=== PATIENT | male | born 1945 | race Caucasian/White ===

== ENCOUNTER 2018-02-17 04:35 | Inpatient (IN) ==
[2018-02-17] MEDS ORDERED: SODIUM CHLORIDE 0.9% 1000ML 1,000 ML IV SCH ×2 (05:00→10:30)
--- NOTE | 2018-02-17 05:40 | Emergency Department Note ---
ED Visit Note I saw this patient in conjunction with Luis Alfredo Herrera PA-C. I agree with his decision making and treatment plan. .
[2018-02-17 05:53] LABS: Basophils # (auto) 0.02 K/uL (0-0.2); Basophils % (auto) 0.1 %; Eosinophils % (auto) 1.5 %; Hematocrit (blood only) 47.1 % (42-52); Hemoglobin 15.9 g/dL (14.0-18.0); Immature Granulocytes # (auto) 0.05 K/uL (0.00-0.02); Immature Granulocytes % (auto) 0.4 %; Lymphocytes # (auto) 2.54 K/uL (1.2-3.4); Lymphocytes % (auto) 18.8 %; Mean Corpuscular Hgb Conc 33.8 g/dL (32-36); Mean Corpuscular Volume 90.9 fL (80-100); Monocytes # (auto) 1.54 K/uL (0.11-0.59); Monocytes % (auto) 11.4 %; Neutrophils # (auto) 9.16 K/uL (1.4-6.5); Neutrophils % (auto) 67.8 %; Platelet Count 234 K/uL (130-400); RDW Coefficient of Variation 13.1 % (11.5-14.5); RDW Standard Deviation 43.1 fL (36.4-46.3); Red Blood Count 5.18 M/uL (4.7-6.1); White Blood Count 13.51 K/uL (4.8-10.8)
[2018-02-17 06:03] LABS: Albumin Level 3.5 gm/dl (3.4-5.0); Creatinine Clr Calc Pharmacy 80.2 ml/min; Est GFR (African American) 80.9; Est GFR (Non-African American) 69.8; Potassium 3.9 mmol/L (3.5-5.1)
[2018-02-17 06:06] LABS: Albumin Globulin Ratio 0.9 (0.9-2); Bilirubin,Total 0.7 mg/dl (0.2-1); C Reactive Protein 1.49 mg/dl (0-0.29); Globulin 3.9 gm/dl (2.5-4.0); Total Protein 7.4 gm/dl (6.4-8.2)
[2018-02-17] MEDS ORDERED: VANCOMYCIN HCL 1,000 MG/270 ML BAG IV STA (06:12)
[2018-02-17] MEDS ORDERED: VANCOMYCIN CONSULT ACTIVE PRN ×2 (06:12→10:21)
--- NOTE | 2018-02-17 06:34 | XRay Report ---
XR foot RT min 3V routine CLINICAL HISTORY: Right foot infection. COMPARISON: None FINDINGS: Tarsometatarsal joints are intact. There is no acute fracture. There is no radiographic ev idence for osteomyelitis within the right foot. A well-corticated ossicle along the lateral base of t he right fifth metatarsal is chronic. 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 There is mild adjacent soft tissue swelling. IMPRESSION: 1. No acute fracture or evidence for osteomyelitis within the right foot. 2. Right great toe soft tissue swelling. Electronically signed by: Hamzah Anthony M.D. 02/17/2018 6:33 AM
--- NOTE | 2018-02-17 06:52 | Emergency Department Note ---
History of Present Illness General Chief complaint: Foot Injury/Pain Stated complaint: PAIN IN RIGHT FOOT Time Seen by Provider: 02/17/18 04:46 History of Present Illness Maximum Pain Intensity: 8 This is a 72-year-old male presenting to the emergency department for evaluation of right foot pain. The patient states that last evening he began having pain in the right foot into his right ankle. He does not have recent injury or trauma to explain his symptoms. When he awoke early this morning he noticed a significant amount of redness in his foot and leg. On further inspection he did note that there was a small cut of a callus on his foot, and this seems to be where the redness is coming from. The patient has a history of diabetes and is insulin-dependent. He does not report a pre-existing history of neuropathy. The patient is able to ambulate on his foot, although it does cause him pain. He does not report fever or chills. He rates his discomfort in 09/27. Home Medications Home Medications Medication Instructions Recorded Confirmed Type aspirin 81 mg PO DAILY 02/17/18 02/17/18 History atorvastatin 10 mg PO DAILY 02/17/18 02/17/18 History canagliflozin [Invokana] 100 mg PO QAM 02/17/18 02/17/18 History glyburide 5 mg PO BID 02/17/18 02/17/18 History hydrochlorothiazide 25 mg PO DAILY 02/17/18 02/17/18 History insulin glargine [Lantus U-100 45 unit SUBCUT QAM 02/17/18 02/17/18 History Insulin] metformin 1,000 mg PO BID 02/17/18 02/17/18 History quinapril 40 mg PO DAILY 02/17/18 02/17/18 History Allergies Allergy/AdvReac Type Severity Reaction Status Date / Time clavulanic acid Allergy Severe Unknown Verified 02/17/18 06:00 Past Med/Surg History Medical History Dyslipidemia Hypertension Diabetes Social History Feels Safe at Home: Yes Smoking Status: Never smoker Review of Systems A total of 10 systems reviewed and were otherwise negative Physical Exam Vital Signs Vital Signs - 24 hr 02/17/18 04:38 02/17/18 06:23 02/17/18 07:07 Temperature 36.8 C Temperature Source Oral Sepsis Recent Fever Within 48 Hours No Sepsis New/Unexplained Change in Mental Status No Sepsis Action Taken by Nursing No Action Required Pulse Rate 102 H Pulse Rate [Right Finger] 91 H 91 H Respiratory Rate 20 20 18 Respiratory Effort / Characteristics Non-Labored Non-Labored Non-Labored Spontaneous Respiratory Depth Normal Normal Normal Blood Pressure 160/82 H Blood Pressure [Left Arm] 158/79 H 155/82 H Blood Pressure Mean 108 Blood Pressure Mean [Left Arm] 105 106 Blood Pressure Position Sitting Blood Pressure Position [Left Arm] Lying Pulse Oximetry 94 97 95 Oxygen Delivery Method Room Air Room Air Room Air VITALS: Vitals are noted on the nurse's note and reviewed by myself. Vital signs with mild tachycardia GENERAL: Well-developed, well-nourished, white male, who is in no acute distress and resting comfortably. Patient is cooperative with the examination. HEAD: Normocephalic atraumatic. EYES: Pupils equal round and reactive to light and accommodation. Conjunctivae without injection, sclerae without icterus. Extraocular movements intact. NECK: Supple without nuchal rigidity. No lymphadenopathy. No thyromegaly. Cervical spine is nontender. HEART: Regular rate and rhythm without murmurs gallops or rubs. LUNGS: Clear to auscultation bilaterally without wheezes, rales or rhonchi. No retractions or accessory muscle use. MUSCULOSKELETAL: There is a callus on the medial distal aspect of the right foot that has a crack/laceration through the mid aspect. This does appear to cause a mildly deep break in the skin that is not grossly necrotic, but does appear to penetrate deeply. There is notable surrounding erythema and edema from the ball of the right foot into the superior aspect of the foot with lymphangitic streaking extending to the proximal tibia. This area is warm and highly concerning for infection. No other lesions noted. NEURO: Patient was alert and oriented to person place and time. CN II through XII grossly intact. SKIN: The skin was without additional rashes, erythema, edema, or bruising. Capillary refill less than 2 seconds. Course Administered Medications Vancomycin HCl (Vancomycin Hcl) 1,000 mg in 270 mls @ 125 mls/hr IV NOW STA Stop: 02/17/18 08:21 Last Admin: 02/17/18 06:19 Dose: 125 mls/hr Discontinued Medications Sodium Chloride (Nss 1000ml) 1,000 mls @ 999 mls/hr IV .Q1H1M MIGUEL Stop: 02/17/18 06:00 Last Infusion: 02/17/18 06:47 Dose: 0 mls/hr Admin: 02/17/18 05:36 Dose: 999 mls/hr Medical Decision Making Differential Diagnosis Differential diagnosis includes: Etiologies such as cellulitis, abscess, osteomyelitis, MRSA infection, DVT, necrotizing fasciitis, dermatitis, drug eruption, as well as others were entertained Laboratory Data Result diagrams: 02/17/18 05:26 02/17/18 05:26 Lab Results 02/17/18 02/17/18 02/17/18 Range/Units 05:20 05:26 05:26 WBC 13.51 H (4.8-10.8) K/uL RBC 5.18 (4.7-6.1) M/uL Hgb 15.9 (14.0-18.0) g/dL Hct 47.1 (42-52) % MCV 90.9 (80-100) fL MCH 30.7 (25-34) pg MCHC 33.8 (32-36) g/dL RDW Std Deviation 43.1 (36.4-46.3) fL RDW Coeff of [place] 13.1 (11.5-14.5) % Plt Count 234 (130-400) K/uL MPV 11.0 H (7.4-10.4) fL Immature Gran % (Auto) 0.4 % Neut % (Auto) 67.8 % Lymph % (Auto) 18.8 % [place] % (Auto) 11.4 % Eos % (Auto) 1.5 % Baso % (Auto) 0.1 % Immature Gran # (Auto) 0.05 H (0.00-0.02) K/uL Neut # (Auto) 9.16 H (1.4-6.5) K/uL Lymph # (Auto) 2.54 (1.2-3.4) K/uL [place] # (Auto) 1.54 H (0.11-0.59) K/uL Eos # (Auto) 0.20 (0-0.5) K/uL Baso # (Auto) 0.02 (0-0.2) K/uL ESR 36 H (0-14) mm/hr Sodium (136-145) mmol/L Potassium (3.5-5.1) mmol/L Chloride (98-107) mmol/L Carbon Dioxide (21-32) mmol/L Anion Gap (3-11) BUN (7-18) mg/dl Creatinine (0.6-1.4) mg/dl Est Cr Clr Drug Dosing ml/min Est GFR ( Amer) Est GFR (Non-Af Amer) BUN/Creatinine Ratio (10-20) Glucose (70-99) mg/dl Lactate 1.3 (0.4-2.0) mmol/L Calcium (8.5-10.1) mg/dl Total Bilirubin (0.2-1) mg/dl AST (15-37) U/L ALT (12-78) U/L Alkaline Phosphatase (45-117) U/L C-Reactive Protein (0-0.29) mg/dl Total Protein (6.4-8.2) gm/dl Albumin (3.4-5.0) gm/dl Globulin (2.5-4.0) gm/dl Albumin/Globulin Ratio (0.9-2) 02/17/18 Range/Units 05:26 WBC (4.8-10.8) K/uL RBC (4.7-6.1) M/uL Hgb (14.0-18.0) g/dL Hct (42-52) % MCV (80-100) fL MCH (25-34) pg MCHC (32-36) g/dL RDW Std Deviation (36.4-46.3) fL RDW Coeff of [place] (11.5-14.5) % Plt Count (130-400) K/uL MPV (7.4-10.4) fL Immature Gran % (Auto) % Neut % (Auto) % Lymph % (Auto) % [place] % (Auto) % Eos % (Auto) % Baso % (Auto) % Immature Gran # (Auto) (0.00-0.02) K/uL Neut # (Auto) (1.4-6.5) K/uL Lymph # (Auto) (1.2-3.4) K/uL [place] # (Auto) (0.11-0.59) K/uL Eos # (Auto) (0-0.5) K/uL Baso # (Auto) (0-0.2) K/uL ESR (0-14) mm/hr Sodium 135 L (136-145) mmol/L Potassium 3.9 (3.5-5.1) mmol/L Chloride 100 (98-107) mmol/L Carbon Dioxide 27 (21-32) mmol/L Anion Gap 8.0 (3-11) BUN 19 H (7-18) mg/dl Creatinine 1.06 (0.6-1.4) mg/dl Est Cr Clr Drug Dosing 80.2 ml/min Est GFR ( Amer) 80.9 Est GFR (Non-Af Amer) 69.8 BUN/Creatinine Ratio 18.0 (10-20) Glucose 179 H (70-99) mg/dl Lactate (0.4-2.0) mmol/L Calcium 9.0 (8.5-10.1) mg/dl Total Bilirubin 0.7 (0.2-1) mg/dl AST 11 L (15-37) U/L ALT 27 (12-78) U/L Alkaline Phosphatase 68 (45-117) U/L C-Reactive Protein 1.49 H (0-0.29) mg/dl Total Protein 7.4 (6.4-8.2) gm/dl Albumin 3.5 (3.4-5.0) gm/dl Globulin 3.9 (2.5-4.0) gm/dl Albumin/Globulin Ratio 0.9 (0.9-2) Imaging Data Radiologist's Impression: XR foot RT min 3V routine CLINICAL HISTORY: Right foot infection. COMPARISON: None FINDINGS: Tarsometatarsal joints are intact. There is no acute fracture. There is no radiographic evidence for osteomyelitis within the right foot. A well- corticated ossicle along the lateral base of the right fifth metatarsal is chronic. There is mild osteoarthritis of the right first metatarsophalangeal joint. There is mild adjacent soft tissue swelling. IMPRESSION: 1. No acute fracture or evidence for osteomyelitis within the right foot. 2. Right great toe soft tissue swelling. MDM Narrative Physical exam and history were performed. Nursing notes, EMR, and Medication List were personally reviewed. Patient appears to have pain of his right foot that has evidently been evolving over the past few hours. On examination the patient has a concerning right foot cellulitis with noted lymphangitic streaking. He is mildly tachycardic and is diabetic. IV access was established and labs were obtained. X-rays were performed. The patient was hydrated with normal saline. Cultures and lactic acid were gathered. The wound itself does not have obvious drainage for culture. The patient's blood work is as above and was reviewed. He does have an elevated white blood cell count of 13.51 with associated shift. The patient sed rate and CRP are both elevated. Glucose is 179. Lactic acid is negative. X-ray was reviewed by myself and radiology as showing no acute process. The case was discussed with my attending physician, Dr. Tracy, who also independently evaluated the patient. We do not feel comfortable with discharging patient home at this point due to his quickly spreading infection and diabetic status. The patient was started on IV vancomycin here in the department. The case was discussed with the [facility] hospitalist who agreed to evaluate the patient here in the department. Please see their dictation for further patient course, plan, and disposition. The chart was completed utilizing [employer] Speech Voice Recognition Software. Grammatical errors, random word insertions, pronoun errors, and incomplete sentences are an occasional consequence of this system due to software limitations, ambient noise, and hardware issues. Any formal questions or concerns about the content, text, or information contained within the body of this dictation should be directly addressed to the provider for clarification. . Impression & Plan Cellulitis in diabetic foot Discharge Plan Visit Data Chief Complaint: Foot Injury/Pain Stated Complaint: PAIN IN RIGHT FOOT ED Provider: Zakiya Tracy ED Midlevel Provider: Luis Alfredo Herrera Discharge Problem: Cellulitis in diabetic foot Forms Stand Alone Forms: [facility] codesy Prescriptions Prescriptions: No Action insulin glargine [Lantus U-100 Insulin] 100 unit/mL solution 45 unit subcut QAM RF: 0 atorvastatin 10 mg tablet 10 mg PO DAILY RF: 0 glyburide 5 mg Tablet 5 mg PO BID RF: 0 aspirin 81 mg Tablet,Delayed Release (Dr/Ec) 81 mg PO DAILY RF: 0 quinapril 40 mg tablet 40 mg PO DAILY RF: 0 metformin 1,000 mg tablet 1,000 mg PO BID RF: 0 hydrochlorothiazide 25 mg tablet 25 mg PO DAILY RF: 0 canagliflozin [Invokana] 100 mg tablet 100 mg PO QAM RF: 0 Referrals Referrals: Fabian Escoto DO [Primary Care Provider] -
--- NOTE | 2018-02-17 08:48 | History & Physical Report ---
Date of Service February 17, 2018 Assessment & Plan (1) Cellulitis: Pt with right foot pain started yesterday with red streaking to right lower leg. denies injury/trauma. no fever/chills. In ER patient afebrile, P: 102 down to 91, R: 20, BP: 160/82, 94% on RA. WBC: 13. Normal lactate. ESR: 36, CRP: 1.49. Was given vancomycin R foot xray: No acute fracture or evidence for osteomyelitis within the right foot. Right great toe soft tissue swelling. -pending blood cultures -pending MRSA swab -zosyn, vancomycin -cbc, bmp in am (2) Diabetes mellitus, type II: HbA1c: 7.5 on 01/03/18 -Hold Invokana, glyburide, metformin while in hospital -Continue home Lantus 45 units daily -NovoLog sliding scale per protocol (3) Hypertension: BP 160/82. Patient did not have a.m. medicines today -Continue Accupril -Hold HCTZ for now -Monitor BP (4) Dyslipidemia: -Continue atorvastatin (5) ISABEL (obstructive sleep apnea): Intolerant to CPAP (6) GERD (gastroesophageal reflux disease): -Continue ranitidine DVT Prophylaxis -Lovenox SQ DNR/DNI as per discussion with pt Follows with Dr Fabian Escoto for routine care Pt was seen with Dr Jones. See addendum History of Present Illness Chief Complaint: R foot pain Primary Care Provider: Fabian Escoto, Pt is 72 y/o M with PMH melenoma, obesity, DM II, HTN, dyslipidemia, ISABEL presented to ER with c/o R foot pain started approx 21:00 yesterday. States increased pain this morning and noticed red streaking up right lower leg. Yesterday noticed callus to R plantar foot around 1st MTP base. Denies any discharge. Denies any known injury or trauma. Pt states 2 days ago felt a little achy. Hx dermatitis to extremities in which he uses triamcinalone prn. Denies hx MRSA, cellulitis, DVT. Denies fever/chills, diaphoresis, N/V/D/C, LEARY, dizziness, syncope, vision changes, neck pain, CP, SOB, orthopnea, palpitations , cough, sore throat, choking, otalgia, rhinorrhea, abdominal pain, paresthesias , weakness, extremity weakness, extremity edema, other rashes, urinary symptoms. Allergies Allergy/AdvReac Type Severity Reaction Status Date / Time clavulanic acid Allergy Severe Unknown Verified 02/17/18 06:00 Home Medications Home Medications Medication Instructions Recorded Confirmed Type aspirin 81 mg PO DAILY 02/17/18 02/17/18 History atorvastatin 10 mg PO PM 02/17/18 02/17/18 History canagliflozin [Invokana] 100 mg PO QAM 02/17/18 02/17/18 History glyburide 5 mg PO BID 02/17/18 02/17/18 History hydrochlorothiazide 25 mg PO DAILY 02/17/18 02/17/18 History insulin glargine [Lantus U-100 45 unit SUBCUT QAM 02/17/18 02/17/18 History Insulin] metformin 1,000 mg PO BID 02/17/18 02/17/18 History quinapril 40 mg PO DAILY 02/17/18 02/17/18 History ranitidine HCl 150 mg PO BID PRN 02/17/18 02/17/18 History Past Med/Surg History Medical History GERD (gastroesophageal reflux disease) (Chronic) Melanoma (Chronic) Obesity (Chronic) ISABEL (obstructive sleep apnea) (Chronic) Diabetes mellitus, type II (Chronic) Dyslipidemia (Chronic) Hypertension (Chronic) Surgical History History of arthroplasty of left knee (Resolved) Family History Other CAD (coronary artery disease) Stroke Social History Current Living Situation: Spouse Other Information That Helps Us Care for You: No Feels Safe at Home: Yes Safety Concerns: Feels Safe At This Time Smoking Status: Former smoker Do You Dip or Chew Tobacco: No Smoking End Date: 1972 Second Hand Exposure: No Tobacco Cessation Education Requested by Patient: No Hx Alcohol Use: Yes Alcohol type: beer Alcohol Intake Frequency: other Alcohol Intake Frequency Comment: 2 beers once a year Hx Substance Use: No Beliefs That Will Affect Care: None Preferred Language: Lao Communication Ability: Effective Visitor Services Representative Required: No Review of Systems All systems reviewed & are unremarkable except as noted in HPI & below Physical Exam 2 Vital Signs (Past 24 Hours): Last Vital Signs Temp 36.8 C 02/17/18 04:38 Pulse 91 H 02/17/18 07:07 Resp 18 02/17/18 07:07 BP 155/82 H 02/17/18 07:07 Pulse Ox 95 02/17/18 07:07 Physical Exam: General: no distress, obese Head: normocephalic, atraumatic Eyes: PERRL, EOM's intact, conjunctiva non-injected, anicteric ENT: normal inspection external ears, nose, mucous membranes moist Neck: supple, trachea midline Lungs: clear, no respiratory distress CV: RRR, no murmur, no pretibial edema Abd: normal BS, soft, non-tender Ext: no cyanosis, no calf tenderness, RLE: plantar surface of 1st metatarsal head with callus with central fissure with surrounding erythema and tenderness to palpation, right lower leg with red streaking Neuro: A&O x 3, no focal deficits noted, normal affect Skin: warm, dry, small dry patches noted to lower extremities Results & Data Laboratory Results Short CBC 02/17/18 Range/Units 05:26 WBC 13.51 H (4.8-10.8) K/uL Hgb 15.9 (14.0-18.0) g/dL Hct 47.1 (42-52) % Plt Count 234 (130-400) K/uL BMP 02/17/18 05:26 Sodium 135 L Potassium 3.9 Chloride 100 Carbon Dioxide 27 BUN 19 H Creatinine 1.06 Glucose 179 H Calcium 9.0 Liver Function 02/17/18 Range/Units 05:26 Total Bilirubin 0.7 (0.2-1) mg/dl AST 11 L (15-37) U/L ALT 27 (12-78) U/L Alkaline Phosphatase 68 (45-117) U/L Albumin 3.5 (3.4-5.0) gm/dl LACTATE 1.3 ESR: 36 (0-14) CRP: 1.49 (0-0.29) Diagnostic Findings XRAY RIGHT FOOT: IMPRESSION: 1. No acute fracture or evidence for osteomyelitis within the right foot. 2. Right great toe soft tissue swelling Supervising Physician Co-Signing Physician Notes Attending addendum: Patient was seen and examined in medical floor Is a 72-year-old obese male with diabetes and velocities involving the right ball of the great toe was admitted with spreading cellulitis involving the right leg. Has been feeling a lot better since admission and intravenous antibiotic Denies any pain, shortness of breath, fever and/or chills On examination Lying in bed comfortably Hemodynamically stable Chest- clear to auscultate bilaterally Heart-regular, no murmur appreciated Abdomen-benign Extremities-no edema Local exam of right foot-velocities involving the ball of the right great toe with skin break and black eschar Redness and tenderness are barely visible Labs and imaging studies noted Has spreading cellulitis involving right foot and the source of the callus Will get wound care consult Likely be discharged tomorrow on oral Augmentin Acute assessment and plan as outlined above by Rahel jones
[2018-02-17] MEDS ORDERED: CARBOHYDRATES FOR HYPOGLYCEMIA PO PRN (09:50)
[2018-02-17] MEDS ORDERED: POLYETHYLENE (MIRALAX) 17 GM PACK PO PRN (09:50)
[2018-02-17] MEDS ORDERED: GLUCOSE 40% GEL 15 GM TUBE PO PRN (09:50)
[2018-02-17] MEDS ORDERED: DEXTROSE 50% 50 ML SYRINGE IV PRN (09:50)
[2018-02-17] MEDS ORDERED: INSULIN GLARGINE SOLOSTAR 100 UNITS/ML 3 ML PEN SQ SCH (09:50)
[2018-02-17] MEDS ORDERED: ACETAMINOPHEN 325 MG TAB PO PRN (09:50)
[2018-02-17] MEDS ORDERED: GLUCAGON FOR INJ 1 MG VIAL SQ PRN (09:50)
[2018-02-17] MEDS ORDERED: GLUCOSE 10 TABS/TUBE PO PRN (09:50)
[2018-02-17] MEDS ORDERED: PIPERACILL/TAZOBAC CONSULT ACTIVE PRN (10:21)
[2018-02-17] MEDS ORDERED: PIPERACILLIN/TAZOBACTAM 4.5 GM in DEXTROSE 5% 100 ML IV ONE (10:30)
[2018-02-17] MEDS ORDERED: VANCOMYCIN HCL 2,000 MG in SODIUM CHLORIDE 0.9% 500 ML IV ONE (10:30)
--- NOTE | 2018-02-17 10:42 | Pharmacy Report ---
Pharmacy Abx Initial Consult - Date of Service February 17, 2018 - Pharmacy Dosing Scope Date of Consult: 02/17/18 Consultation requested by: Rahel Bustillo Pharmacy is consulted to initiate vancomycin/Zosyn IV dosing therapy, order appropriate labs and adjust drug dose/frequency. - Subjective The patient is a 72 year old M admitted on 02/17/18 08:43 with worsening foot infection. Patient has diabetes. - Objective Height: 5 ft 8 in Weight: 122.4 kg Vital Signs (Past 12hrs): Vital Signs Temp Pulse Pulse Resp BP BP BP 02/17/18 09:55 36.8 C 91 H 18 171/91 H 02/17/18 07:07 91 H 18 155/82 H 02/17/18 06:23 91 H 20 158/79 H 02/17/18 04:38 36.8 C 102 H 20 160/82 H Pulse Ox 02/17/18 09:55 96 02/17/18 07:07 95 02/17/18 06:23 97 02/17/18 04:38 94 Lab Results (24hrs): Laboratory Tests (24 Hours) 02/17/18 02/17/18 02/17/18 05:26 05:26 05:26 WBC 13.51 H Neut # (Auto) 9.16 H ESR 36 H Creatinine 1.06 Est Cr Clr Drug Dosing 80.2 C-Reactive Protein 1.49 H Micro Results: 02/17/18 05:26 Blood Culture - Pending Blood 02/17/18 05:10 Blood Culture - Pending Blood - Risk Factors for Resistance none. - Assessment & Plan Assessment 72 year old M with a PMH of diabetes who presents with worsening cellulitis. Plan vancomycin/Zosyn for treatment of diabetic foot infection Vancomycin IV * Estimated PK Parameters: Vd 0.6 L/kg, Sang 0.07 hr-1, t1/2 9.9 hr * Loading dose: 1000 mg (8 mg/kg) and then 2000 mg (16 mg/kg) * Maintenance dose: 1750 mg IV (14.3 mg/kg) every 12 hours * Goal trough level for cellulitis : ~15 mcg/mL * Trough ordered for 02/19/18 prior to 0800 dose * A less than traditional dose has been selected due to likelihood of drug accumulation in obese patient. Piperacillin/tazobactam * 4.5 g bolus administered over 30 minutes, then 4.5 g IV extended infusion every 8 hours for CrCl greater than 20 mL/min. * Aggressive dosing selected due to BMI 35 or more. Pharmacy will continue to follow and will adjust dose/frequency as necessary. Thank you.
[2018-02-17] MEDS: ENALAPRIL MALEATE 10 MG TAB PO SCH (11:20)
[2018-02-17] MEDS: ASPIRIN 81 MG ECTAB PO SCH (11:20)
[2018-02-17] MEDS: INSULIN GLARGINE SOLOSTAR 100 UNITS/ML 3 ML PEN SQ SCH (11:21)
[2018-02-17] MEDS: INSULIN ASPART 100 UNITS/ML 3 ML PEN SC SCH ×3 (11:24→21:50)
[2018-02-17] MEDS: ENOXAPARIN INJ 40 MG/0.4 ML SYR SQ SCH (12:49)
[2018-02-17] MEDS: PIPERACILLIN/TAZOBACTAM 4.5 GM in DEXTROSE 5% 100 ML IV SCH (15:16)
[2018-02-17] MEDS: VANCOMYCIN HCL 1,750 MG in SODIUM CHLORIDE 0.9% 500 ML IV SCH (20:30)
[2018-02-17] MEDS ORDERED: ATORVASTATIN 10 MG TAB PO SCH (21:00)
[2018-02-18] MEDS: PIPERACILLIN/TAZOBACTAM 4.5 GM in DEXTROSE 5% 100 ML IV SCH ×2 (00:09→08:40)
[2018-02-18 05:46] LABS: Basophils # (auto) 0.02 K/uL (0-0.2); Basophils % (auto) 0.2 %; Eosinophils # (auto) 0.22 K/uL (0-0.5); Eosinophils % (auto) 2.4 %; Hematocrit (blood only) 43.1 % (42-52); Hemoglobin 14.3 g/dL (14.0-18.0); Immature Granulocytes # (auto) 0.03 K/uL (0.00-0.02); Immature Granulocytes % (auto) 0.3 %; Lymphocytes # (auto) 2.43 K/uL (1.2-3.4); Lymphocytes % (auto) 26.5 %; Mean Corpuscular Hgb Conc 33.2 g/dL (32-36); Mean Corpuscular Volume 91.3 fL (80-100); Mean Platelet Volume 11.3 fL (7.4-10.4); Monocytes # (auto) 1.02 K/uL (0.11-0.59); Monocytes % (auto) 11.1 %; Neutrophils # (auto) 5.46 K/uL (1.4-6.5); Neutrophils % (auto) 59.5 %; Platelet Count 212 K/uL (130-400); RDW Coefficient of Variation 13.2 % (11.5-14.5); Red Blood Count 4.72 M/uL (4.7-6.1); White Blood Count 9.18 K/uL (4.8-10.8)
[2018-02-18 06:28] LABS: BUN Creatinine Ratio 17.3 (10-20); Calcium 8.4 mg/dl (8.5-10.1); Creatinine Clr Calc Pharmacy 86.7 ml/min; Est GFR (African American) 88.9; Est GFR (Non-African American) 76.7
[2018-02-18 08:01] VITALS: BP 154/76; PULSE 78; TEMP 99; O2SAT 94
[2018-02-18] MEDS: ENALAPRIL MALEATE 10 MG TAB PO SCH (08:33)
[2018-02-18] MEDS: ASPIRIN 81 MG ECTAB PO SCH (08:33)
[2018-02-18] MEDS: INSULIN GLARGINE SOLOSTAR 100 UNITS/ML 3 ML PEN SQ SCH (08:35)
[2018-02-18] MEDS: INSULIN ASPART 100 UNITS/ML 3 ML PEN SC SCH ×2 (08:36→12:41)
[2018-02-18] MEDS: VANCOMYCIN HCL 1,750 MG in SODIUM CHLORIDE 0.9% 500 ML IV SCH (08:40)
--- NOTE | 2018-02-18 11:17 | Hospitalist Progress Note ---
Date of Service February 18, 2018 Assessment & Plan (1) Cellulitis: Pt with right foot pain started yesterday with red streaking to right lower leg. denies injury/trauma. no fever/chills. In ER patient afebrile, P: 102 down to 91, R: 20, BP: 160/82, 94% on RA. WBC: 13. Normal lactate. ESR: 36, CRP: 1.49. Was given vancomycin R foot xray: No acute fracture or evidence for osteomyelitis within the right foot. Right great toe soft tissue swelling. Has been on vancomycin and Zosyn intravenously Blood culture still pending Clinically not better without any pain and/or redness Likely to be discharged this afternoon (2) Diabetes mellitus, type II: HbA1c: 7.5 on 01/03/18 -Hold Invokana, glyburide, metformin while in hospital -Continue home Lantus 45 units daily -NovoLog sliding scale per protocol -Blood sugar is controlled (3) Hypertension: BP 160/82. Patient did not have a.m. medicines today -Continue Accupril -Hold HCTZ for now -Blood pressure remains stable (4) Dyslipidemia: -Continue atorvastatin (5) ISABEL (obstructive sleep apnea): Intolerant to CPAP No acute issues (6) GERD (gastroesophageal reflux disease): -Continue ranitidine DVT Prophylaxis -Lovenox SQ Follows with Dr Fabian Escoto for routine care Clinically a lot better and wants to go home Likely be discharged on oral Augmentin Subjective Is a 72-year-old obese male with diabetes and velocities involving the right ball of the great toe was admitted with spreading cellulitis involving the right leg. 02/18/18 Patient was seen and examined in medical floor Denies to have any pain in the right foot Redness along the right lower leg is almost gone Patient has been ambulating Wants to go home this afternoon Physical Exam 2 Vital Signs (Past 24 Hours): Last Vital Signs Temp 37.2 C 02/18/18 08:01 Pulse 78 02/18/18 08:01 Resp 18 02/18/18 08:01 BP 154/76 H 02/18/18 08:01 Pulse Ox 94 02/18/18 08:01 Physical Exam: Sitting on a chair without symptoms Eyes: PERRL, conjunctivae normal, anicteric sclerae ENMT: external ear and nose normal, oropharynx normal Neck: trachea midline, no thyromegaly Respiratory: normal respiratory effort Auscultation: lungs clear to auscultation bilaterally Cardiovascular: Rate/Rhythm: regular rate and regular rhythm Heart Sounds: normal S1 and normal S2 Gastrointestinal (Abdomen): Inspection/Auscultation: abdomen normal to inspection and normal bowel sounds Neurologic: PERRL, EOMI, accommodation nl, no face palsy, no dysarthria Results & Data Laboratory Results Short CBC 02/18/18 Range/Units 05:24 WBC 9.18 (4.8-10.8) K/uL Hgb 14.3 (14.0-18.0) g/dL Hct 43.1 (42-52) % Plt Count 212 (130-400) K/uL BMP 02/18/18 05:24 Sodium 138 Potassium 4.0 Chloride 105 Carbon Dioxide 25 BUN 17 Creatinine 0.98 Glucose 190 H Calcium 8.4 L Medications Administered Current Inpatient Medications Acetaminophen (Tylenol) 650 mg PO Q4H PRN PRN Reason: pain/fever Stop: 03/19/18 09:49 Aspirin (Ecotrin) 81 mg PO DAILY MIGUEL Stop: 03/19/18 09:49 Last Admin: 02/18/18 08:33 Dose: 81 mg Atorvastatin Calcium (Lipitor) 10 mg PO PM MIGUEL Stop: 03/19/18 20:59 Last Admin: 02/17/18 20:30 Dose: 10 mg Dextrose (Dextrose 50%) 25 - 50 ml IV UD PRN; Protocol PRN Reason: Hypoglycemia Protocol Stop: 03/19/18 09:49 Enalapril Maleate (Vasotec) 40 mg PO DAILY MIGUEL Stop: 03/19/18 09:49 Last Admin: 02/18/18 08:33 Dose: 40 mg Enoxaparin Sodium (Lovenox) 40 mg SQ DAILY@1200 MIGUEL Stop: 03/19/18 11:59 Last Admin: 02/17/18 12:49 Dose: 40 mg Glucagon (Glucagen) 1 mg SQ UD PRN; Protocol PRN Reason: Hypoglycemia Protocol Stop: 03/19/18 09:49 Glucose (Dex4 Glucose) 4 - 8 tabs PO UD PRN; Protocol PRN Reason: Hypoglycemia Protocol Stop: 03/19/18 09:49 Glucose (Glucose 40%) 15 - 30 gm PO UD PRN; Protocol PRN Reason: Hypoglycemia Protocol Stop: 03/19/18 09:49 Piperacillin Sod/Tazobactam (Sod 4.5 gm/ Dextrose) 120 mls @ 30 mls/hr IV Q8H [facility]; Protocol Stop: 02/27/18 15:59 Last Admin: 02/18/18 08:40 Dose: 30 mls/hr Vancomycin HCl 1,750 mg/ (Sodium Chloride) 535 mls @ 200 mls/hr IV Q12H [facility] Stop: 02/27/18 19:59 Last Admin: 02/18/18 08:40 Dose: 200 mls/hr Insulin Aspart (Novolog Flexpen) 0 units SC ACHS [facility] Stop: 03/19/18 11:29 Last Admin: 02/18/18 08:36 Dose: 13 units Insulin Glargine (Lantus Solostar Pen) 45 units SQ QAM [facility] Stop: 03/19/18 10:14 Last Admin: 02/18/18 08:35 Dose: 45 units Miscellaneous (Carbohydrates For Hypoglycemia) 15 - 30 gm PO UD PRN PRN Reason: Hypoglycemia Treatment Stop: 03/19/18 09:49 Miscellaneous Information (Consult) 1 ea N/A UD PRN PRN Reason: Consult Stop: 03/19/18 10:20 Miscellaneous Information (Consult) 1 ea N/A UD PRN PRN Reason: Consult Stop: 03/19/18 10:20 Polyethylene Glycol (Miralax Powder Packet) 17 gm PO DAILY PRN PRN Reason: Constipation Stop: 03/19/18 09:49 Ranitidine HCl (Zantac) 150 mg PO BID PRN PRN Reason: Indigestion Stop: 03/19/18 09:49
[2018-02-18] MEDS: ENOXAPARIN INJ 40 MG/0.4 ML SYR SQ SCH (12:40)
[2018-02-18] MEDS ORDERED: cephALEXin 500 MG CAP PO STA (13:50)
--- NOTE | 2018-02-18 17:36 | Discharge Summary ---
Date of Service February 18, 2018 Admission HPI Per Admitting Provider Pt is 72 y/o M with PMH melenoma, obesity, DM II, HTN, dyslipidemia, ISABEL presented to ER with c/o R foot pain started approx 21:00 yesterday. States increased pain this morning and noticed red streaking up right lower leg. Yesterday noticed callus to R plantar foot around 1st MTP base. Denies any discharge. Denies any known injury or trauma. Pt states 2 days ago felt a little achy. Hx dermatitis to extremities in which he uses triamcinalone prn. Denies hx MRSA, cellulitis, DVT. Denies fever/chills, diaphoresis, N/V/D/C, LEARY, dizziness, syncope, vision changes, neck pain, CP, SOB, orthopnea, palpitations , cough, sore throat, choking, otalgia, rhinorrhea, abdominal pain, paresthesias , weakness, extremity weakness, extremity edema, other rashes, urinary symptoms. Admission Exam Per Admitting Provider Vital Signs (Past 24 Hours): Last Vital Signs Temp 36.8 C 02/17/18 04:38 Pulse 91 H 02/17/18 07:07 Resp 18 02/17/18 07:07 BP 155/82 H 02/17/18 07:07 Pulse Ox 95 02/17/18 07:07 Physical Exam: General: no distress, obese Head: normocephalic, atraumatic Eyes: PERRL, EOM's intact, conjunctiva non-injected, anicteric ENT: normal inspection external ears, nose, mucous membranes moist Neck: supple, trachea midline Lungs: clear, no respiratory distress CV: RRR, no murmur, no pretibial edema Abd: normal BS, soft, non-tender Ext: no cyanosis, no calf tenderness, RLE: plantar surface of 1st metatarsal head with callus with central fissure with surrounding erythema and tenderness to palpation, right lower leg with red streaking Neuro: A&O x 3, no focal deficits noted, normal affect Skin: warm, dry, small dry patches noted to lower extremities Principal Diagnosis Spreading cellulitis of right foot, insulin-dependent diabetes Discharge Exam Eyes PERRL, conjunctivae normal, anicteric sclerae ENMT external ear and nose normal, oropharynx normal Neck trachea midline, no thyromegaly Respiratory normal respiratory effort Auscultation: lungs clear to auscultation bilaterally Cardiovascular Rate/Rhythm: regular rate and regular rhythm Heart Sounds: normal S1 and normal S2 Gastrointestinal (Abdomen) Inspection/Auscultation: abdomen normal to inspection and normal bowel sounds Neurologic PERRL, EOMI, accommodation nl, no face palsy, no dysarthria Discharge Data Allergies Allergy/AdvReac Type Severity Reaction Status Date / Time clavulanic acid Allergy Severe Unknown Verified 02/17/18 06:00 Consultations 02/17/18 07:26 ED Decision to Admit Stat Hospital Course (1) Cellulitis: Pt with right foot pain started yesterday with red streaking to right lower leg. denies injury/trauma. no fever/chills. In ER patient afebrile, P: 102 down to 91, R: 20, BP: 160/82, 94% on RA. WBC: 13. Normal lactate. ESR: 36, CRP: 1.49. Was given vancomycin R foot xray: No acute fracture or evidence for osteomyelitis within the right foot. Right great toe soft tissue swelling. Has been on vancomycin and Zosyn intravenously Blood culture still pending Clinically not better without any pain and/or redness Likely to be discharged this afternoon (2) Diabetes mellitus, type II: HbA1c: 7.5 on 01/03/18 -Hold Invokana, glyburide, metformin while in hospital -Continue home Lantus 45 units daily -NovoLog sliding scale per protocol -Blood sugar is controlled (3) Hypertension: BP 160/82. Patient did not have a.m. medicines today -Continue Accupril -Hold HCTZ for now -Blood pressure remains stable (4) Dyslipidemia: -Continue atorvastatin (5) ISABEL (obstructive sleep apnea): Intolerant to CPAP No acute issues (6) GERD (gastroesophageal reflux disease): -Continue ranitidine DVT Prophylaxis -Lovenox SQ Follows with Dr Fabian Escoto for routine care Clinically a lot better and wants to go home Likely be discharged on oral Augmentin Total Time Total Time Spent Total Time Spent (In Minutes): 35 minutes Total Time Includes: Examination of the Patient, Discharge Planning and Medication Reconciliation Discharge Plan Discharge Items Patient Disposition: Home - Self-Care Reason For Visit: CELLULITIS, LYMPHANGITIS Discharge Diagnosis: Spreading cellulitis of right foot, insulin-dependent diabetes Condition: Fair Discharge Goals: Decrease discomfort, Improve disease control and Improve function Activity: Resume your previous activity Non-emergency contact: Primary Care Provider Call non-emergency contact if: you have any medication questions and your symptoms worsen Follow-up/Referrals: Fabian Escoto, [Primary Care Provider] - (Your doctor's office will call with an appointment) Diet: Carb Consistent or DM2 Addtl Provider Instructions: Try to keep your right foot infection area clean and dry Prescriptions: New cephalexin [Keflex] 500 mg capsule 500 mg PO TID Qty: 21 RF: 0 Continue insulin glargine 100 unit/mL solution 45 unit subcut QAM RF: 0 atorvastatin 10 mg tablet 10 mg PO PM RF: 0 glyburide 5 mg Tablet 5 mg PO BID RF: 0 aspirin 81 mg Tablet,Delayed Release (Dr/Ec) 81 mg PO DAILY RF: 0 quinapril 40 mg tablet 40 mg PO DAILY RF: 0 metformin 1,000 mg tablet 1,000 mg PO BID RF: 0 hydrochlorothiazide 25 mg tablet 25 mg PO DAILY RF: 0 canagliflozin 100 mg tablet 100 mg PO QAM RF: 0 ranitidine HCl 150 mg Capsule 150 mg PO BID PRN (Reason: Indigestion) RF: 0 Visit Report Forms: My [employer] Stand-Alone Forms: My [employer]/Other Patient Handouts: Diabetes Keep Feet Healthy, Diabetes Inspect Feet Discharge Orders: Discharge Order (Routine); Ordered 02/18/18 Ordered By: Ayana Robles Admission Data Admit Date/Time: 02/17/18 08:43 Attending Provider: Ayana Robles Admit Provider: Ayana Robles Primary Care Provider: Fabian Escoto Other Providers: Ayana Robles Service: Medical Other Interventions: Discharge Summary Assessment (RN) Last Done: 02/18/18 15:49 DC Date/Time DO NOT enter until pt leaves facility: 02/18/18 16:07
[2018-02-19] MEDS ORDERED: VANCOMYCIN TROUGH ONE (07:30)
== END 2018-02-18 16:07 | disposition home or self-care (01) | DRG 603 ==
LOC: ED 04:35 → 4E 08:43

== ENCOUNTER 2021-01-22 16:02 | Observation (INO) ==
[2021-01-22] MEDS ORDERED: ACETAMINOPHEN 500 MG TAB PO STA (16:15)
[2021-01-22] MEDS ORDERED: ONDANSETRON INJ 2 MG/ML 2 ML VIAL IV STA (16:15)
[2021-01-22] MEDS ORDERED: SODIUM CHLORIDE 0.9% 1000ML 1,000 ML IV SCH (16:15)
[2021-01-22 16:40] LABS: Basophils # (auto) 0.02 K/uL (0-0.2); Basophils % (auto) 0.2 %; Eosinophils # (auto) 0.36 K/uL (0-0.5); Eosinophils % (auto) 3.3 %; Hematocrit (blood only) 43.9 % (42-52); Hemoglobin 14.6 g/dL (14.0-18.0); Immature Granulocytes # (auto) 0.01 K/uL (0.00-0.02); Immature Granulocytes % (auto) 0.1 %; Lymphocytes # (auto) 3.01 K/uL (1.2-3.4); Lymphocytes % (auto) 27.4 %; Mean Corpuscular Hemoglobin 30.7 pg (25-34); Mean Corpuscular Hgb Conc 33.3 g/dL (32-36); Mean Corpuscular Volume 92.2 fL (80-100); Monocytes % (auto) 9.1 %; Neutrophils % (auto) 59.9 %; Platelet Count 262 K/uL (130-400); RDW Coefficient of Variation 13.6 % (11.5-14.5); RDW Standard Deviation 45.6 fL (36.4-46.3); Red Blood Count 4.76 M/uL (4.7-6.1)
--- NOTE | 2021-01-22 17:01 | XRay Report ---
XR chest 1V portable HISTORY: weakness COMPARISON: None. FINDINGS: No focal lung consolidations to suggest pneumonia. No evidence for pulmonary edema. The car diac silhouette is mildly enlarged. Small linear scarlike density within the left lower lung zone. Th ere is mild elevation of the right hemidiaphragm. There are low lung volumes. IMPRESSION: 1. Mild cardiomegaly. 2. No focal lung consolidations to suggest pneumonia. 3. Mild elevation of the right hemidiaphragm. ACT 112: Negative or not required by law. Electronically signed by: Miguel Lawrence M.D. 01/22/2021 5:00 PM
[2021-01-22 17:02] LABS: Alanine Aminotransferase 50 (12-78); Albumin Level 3.1 gm/dl (3.4-5.0); Aspartate Aminotransferase 27 U/L (15-37); BUN Creatinine Ratio 15.1 (10-20); Blood Urea Nitrogen 21 mg/dl (7-18); Calcium 8.9 mg/dl (8.5-10.1); Carbon Dioxide 26 mmol/L (21-32); Chloride 103 mmol/L (98-107); Creatinine Clr Calc Pharmacy 60.4 ml/min; Est GFR (African American) 57.6 ml/min; Est GFR (Non-African American) 49.7 ml/min; Glucose 171 mg/dl (70-99); Magnesium 1.7 mg/dl (1.8-2.4); Potassium 3.9 mmol/L (3.5-5.1); Sodium 140 mmol/L (136-145)
[2021-01-22 17:13] LABS: Albumin Globulin Ratio 0.8 (0.9-2); Alkaline Phosphatase 74 U/L (45-117); Bilirubin,Total 0.4 mg/dl (0.2-1); Globulin 3.9 gm/dl (2.5-4.0); Troponin I < 0.015 ng/ml (0-0.045)
--- NOTE | 2021-01-22 17:37 | Emergency Department Note ---
Impression & Plan Confusion, Hypertension, Acute otitis externa of left ear, Dizziness, Hypomagnesemia ED Provider Note Provider: Vasu Vidales MD DATE OF SERVICE: 01/22/2021 CHIEF COMPLAINT: Confusion, head pain, ear issues HISTORY OF PRESENT ILLNESS: Patient is a 75-year-old gentleman history of diabetes, hypertension, cellulitis, and ear infections presenting today from home. Patient states that around 1:00pm he began to feel unwell with a bit of a left headache near his ear and a bit of confusion. Describes good use and is being unable to cooperate TV remote is normal. States he felt bit unsteady and dizzy. No falls or trauma reported. No slurred speech with some fatigue reported. Reports some nausea but no abdominal pain or chest pain or trouble breathing. Patient was recently on a course of amoxicillin for a left ear infection and he states that was improving. Brought by EMS and noted to be hypertensive. No history of similar symptoms. Is on aspirin at home. Symptoms began after eating lunch. Patient is vaccinated with booster for Covid. REVIEW OF SYSTEMS: A total of 10 review of systems was obtained and negative except as stated above in the HPI. PAST MEDICAL HISTORY: As noted above MEDICATIONS: Reviewed home medication list include 81 mg ASA SOCIAL HISTORY: Very distant former smoker more than 50 years ago, lives at home PHYSICAL EXAM: GENERAL: alert and oriented in no acute distress on stretcher Head: normocephalic and atraumatic, no mastoid swelling or tenderness bilaterally. EYES: No injection, discharge or icterus. PERRL, EOMI. NECK: Trachea midline. Supple. ENT: Mucous membranes pink and moist. Right TM clear. Left TM is obscured due to some erythema and cerumen and slight white purulence. LUNGS: Airway patent. No retractions. Breath sounds clear with good air entry bilaterally. HEART: Regular rate and rhythm. No chest wall tenderness ABDOMEN: Soft and non-tender, without guarding or rebound. SKIN: Acyanotic, warm, dry, without rashes EXTREMITIES: Without swelling, tenderness or deformity NEUROLOGICAL: No focal deficits. No aphasia. No facial droop or slurred speech. Ambulatory. EK bpm sinus rhythm first-degree AV block. Right bundle branch block is noted as well. No acute ST segment elevation or depression. QTC 465. CONTINUOUS CARDIAC MONITORING: was ordered and showed a heart rate of 70s-90s bpm in sinus rhythm first-degree AV block Patient's laboratory studies and imaging reviewed. Differential includes Infection, dehydration, metabolic abnormality, hypo/hyperglycemia, electrolyte disturbance, anemia, hypoxia, cardiac sources, intracerebral event, toxicologic, neurologic, as well as other pathologies. IMPRESSION/MEDICAL DECISION MAKING: Patient with some acute onset of slight confusion dizziness and some headache. No trauma reported. No fevers reported but some nausea. Benign abdomen. Patient noted to be hypertensive. No slurred speech or facial droop or focal numbness or weakness in the extremities appreciated on exam. Some evidence of otitis externa on exam of the left ear but no mastoid tenderness or swelling concerning for mastoiditis. Patient does not appear meningitic. Lab work shows a slight leukocytosis of 11. Lactate is elevated at 4.6 without significant renal dysfunction. Mild hypomagnesemia and supplementation was ordered through the IV. No transaminitis noted. TSH within normal limits. Procalcitonin not elevated. Orders for Lyme and tickborne illness were sent. CT the head per radiology without acute intracranial bleed or abnormality noted. CT angiograms of the head and neck per radiology without occlusion or aneurysm some right ICA stenosis left internal artery carotid stenosis but patent vertebral arteries. Doubt he is symptomatic from this. Patient did receive some Tylenol, Zofran, and IV fluids here. Lactate elevation is a bit confounding as he does not appear septic and is hypertensive. Again received some fluids here. Question if his confusion could be more related to some infectious etiology versus occult CVA. No evidence of acute intracranial bleed on imaging and this is within short onset of symptoms so I doubt occult subarachnoid. Blood cultures have been obtained and given such given an empiric dose of Rocephin given the unclear constellation here. Given the concern for otitis externa Cipro dexamethasone otic drops were ordered. Discussed with the patient the findings and he is still having atypical symptoms for him. Cannot quite explain the transient confusion earlier. Patient's pulse ox also has been between 89 to 90% on room air with a no significant smoking history unsure why his oxygen level has been somewhat borderline. Influenza testing is still pending. Doubt this represents PE. Will cover empirically at this time with given this will discuss with the hospitalist for further care here at the hospital. DIAGNOSIS: Confusion, hypertension, hypomagnesemia, left otitis externa, dizziness DISPOSITION: Hospitalist will evaluate Patient was agreeable with this plan. Past Med/Surg History Medical History (Updated 01/22/21 @ 19:01 by Vasu Vidales M.D.) Diabetes mellitus, type II Dyslipidemia GERD (gastroesophageal reflux disease) Hypertension Melanoma Obesity ISABEL (obstructive sleep apnea) Surgical History (Updated 02/17/18 @ 09:15 by Rahel Bustillo PA-C) History of arthroplasty of left knee Family History (Updated 02/17/18 @ 10:33 by Rahel Bustillo PA-C) Other Coronary heart disease Stroke Social History (Updated 02/17/18 @ 09:16 by Rahel Bustillo PA-C) Smoking Status: Never smoker Second Hand Exposure: No; Hx Alcohol Use: Yes Alcohol type: beer Alcohol Intake Frequency Comment: 2 beers once a year Hx Substance Use: No Preferred Language: Greenlandic Communication Ability: Effective Content Development Specialist Required: No Beliefs That Will Affect Care: None marital status: Current Living Situation: Spouse Feels Safe at Home: Yes Assistive Devices: Glasses Allergies Allergies Allergy/AdvReac Type Severity Reaction Status Date / Time clavulanic acid Allergy Severe Unknown Verified 01/22/21 16:58 Home Meds Home Medications Medication Instructions Recorded Confirmed aspirin 81 mg tablet,delayed 81 mg PO DAILY 02/17/18 01/22/21 release atorvastatin 10 mg tablet 10 mg PO PM 02/17/18 01/22/21 glyburide 5 mg tablet 5 mg PO BID 02/17/18 01/22/21 hydrochlorothiazide 25 mg tablet 25 mg PO DAILY 02/17/18 01/22/21 insulin glargine 100 unit/mL 30 unit SUBCUT BID 02/17/18 01/22/21 subcutaneous solution metformin 1,000 mg tablet 1,000 mg PO BID 02/17/18 01/22/21 quinapril 40 mg tablet 40 mg PO DAILY 02/17/18 01/22/21 Saccharomyces boulardii 250 mg 250 mg PO BID 01/22/21 01/22/21 capsule (Florastor) dulaglutide 0.75 mg/0.5 mL 0.75 mg SUBCUT WK 01/22/21 01/22/21 subcutaneous pen injector (Trulicity) fluocinonide 0.05 % topical cream 1 applic TOPICAL BID PRN 01/22/21 01/22/21 loratadine 10 mg tablet (Claritin) 10 mg PO DAILY 01/22/21 01/22/21 mupirocin 2 % topical ointment 1 applic TOPICAL BID PRN 01/22/21 01/22/21 triamcinolone acetonide 0.1 % 1 applic TOPICAL DAILY PRN 01/22/21 01/22/21 topical cream triamcinolone acetonide 55 mcg 1 spray INTRANASAL DAILY PRN 01/22/21 01/22/21 nasal spray aerosol (Nasacort Allergy) vardenafil 20 mg tablet 20 mg PO DAILY PRN 01/22/21 01/22/21 Results & Data (ED) Vital Signs Vital Signs - 24 hr 01/22/21 15:48 01/22/21 16:05 01/22/21 16:16 Temperature 36.6 C Temperature Source Oral Pulse Rate 95 H Pulse Rate [Apical] 94 H Respiratory Rate 22 20 Respiratory Effort / Characteristics Non-Labored Spontaneous Respiratory Depth Normal Respiratory Pattern Regular Blood Pressure 183/104 H Blood Pressure [Right Arm] Blood Pressure Mean 130 Blood Pressure Mean [Right Arm] Pulse Oximetry 94 95 91 Oxygen Delivery Method Room Air Room Air Room Air Sepsis Recent Fever Within 48 Hours No Sepsis New/Unexplained Change in Mental Status Yes Sepsis Action Taken by Nursing No Action Required 01/22/21 17:48 01/22/21 18:48 Temperature Temperature Source Pulse Rate Pulse Rate [Apical] 94 H 84 Respiratory Rate 22 20 Respiratory Effort / Characteristics Respiratory Depth Respiratory Pattern Blood Pressure Blood Pressure [Right Arm] 154/76 H 176/77 H Blood Pressure Mean Blood Pressure Mean [Right Arm] 102 110 Pulse Oximetry 91 95 Oxygen Delivery Method Room Air Sepsis Recent Fever Within 48 Hours Sepsis New/Unexplained Change in Mental Status Sepsis Action Taken by Nursing Laboratory Data Result diagrams: 01/22/21 16:24 01/22/21 16:24 Lab Results 01/22/21 01/22/21 01/22/21 Range/Units 16:24 16:24 16:24 WBC (4.8-10.8) K/uL RBC (4.7-6.1) M/uL Hgb (14.0-18.0) g/dL Hct (42-52) % MCV (80-100) fL MCH (25-34) pg MCHC (32-36) g/dL RDW Std Deviation (36.4-46.3) fL RDW Coeff of [place] (11.5-14.5) % Plt Count (130-400) K/uL MPV (7.4-10.4) fL Immature Gran % (Auto) % Neut % (Auto) % Lymph % (Auto) % [place] % (Auto) % Eos % (Auto) % Baso % (Auto) % Neut # (Auto) (1.4-6.5) K/uL Lymph # (Auto) (1.2-3.4) K/uL [place] # (Auto) (0.11-0.59) K/uL Eos # (Auto) (0-0.5) K/uL Baso # (Auto) (0-0.2) K/uL Immature Gran # (Auto) (0.00-0.02) K/uL Sodium 140 (136-145) mmol/L Potassium 3.9 (3.5-5.1) mmol/L Chloride 103 (98-107) mmol/L Carbon Dioxide 26 (21-32) mmol/L Anion Gap 12.0 H (3-11) BUN 21 H (7-18) mg/dl Creatinine 1.38 (0.6-1.4) mg/dl Est Cr Clr Drug Dosing 60.4 ml/min Est GFR ( Amer) 57.6 ml/min Est GFR (Non-Af Amer) 49.7 ml/min BUN/Creatinine Ratio 15.1 (10-20) Glucose 171 H (70-99) mg/dl Lactate 4.6 H* (0.4-2.0) mmol/L Calcium 8.9 (8.5-10.1) mg/dl Magnesium 1.7 L (1.8-2.4) mg/dl Total Bilirubin 0.4 (0.2-1) mg/dl AST 27 (15-37) U/L ALT 50 (12-78) Alkaline Phosphatase 74 (45-117) U/L Troponin I < 0.015 (0-0.045) ng/ml Total Protein 7.0 (6.4-8.2) gm/dl Albumin 3.1 L (3.4-5.0) gm/dl Globulin 3.9 (2.5-4.0) gm/dl Albumin/Globulin Ratio 0.8 L (0.9-2) Procalcitonin < 0.05 (0-0.5) ng/ml TSH 3.020 (0.300-4.500) uIu/ml Anaplasma Smear Babesia Smear Lyme Disease IgG Ab (Negative) Lyme Disease IgM Ab (Negative) SARS-CoV-2, RNA, NAAT (NEGATIVE) 01/22/21 01/22/21 01/22/21 Range/Units 16:24 16:35 16:52 WBC 11.00 H (4.8-10.8) K/uL RBC 4.76 (4.7-6.1) M/uL Hgb 14.6 (14.0-18.0) g/dL Hct 43.9 (42-52) % MCV 92.2 (80-100) fL MCH 30.7 (25-34) pg MCHC 33.3 (32-36) g/dL RDW Std Deviation 45.6 (36.4-46.3) fL RDW Coeff of [place] 13.6 (11.5-14.5) % Plt Count 262 (130-400) K/uL MPV 11.0 H (7.4-10.4) fL Immature Gran % (Auto) 0.1 % Neut % (Auto) 59.9 % Lymph % (Auto) 27.4 % Bacon % (Auto) 9.1 % Eos % (Auto) 3.3 % Baso % (Auto) 0.2 % Neut # (Auto) 6.60 H (1.4-6.5) K/uL Lymph # (Auto) 3.01 (1.2-3.4) K/uL Bacon # (Auto) 1.00 H (0.11-0.59) K/uL Eos # (Auto) 0.36 (0-0.5) K/uL Baso # (Auto) 0.02 (0-0.2) K/uL Immature Gran # (Auto) 0.01 (0.00-0.02) K/uL Sodium (136-145) mmol/L Potassium (3.5-5.1) mmol/L Chloride (98-107) mmol/L Carbon Dioxide (21-32) mmol/L Anion Gap (3-11) BUN (7-18) mg/dl Creatinine (0.6-1.4) mg/dl Est Cr Clr Drug Dosing ml/min Est GFR ( Amer) ml/min Est GFR (Non-Af Amer) ml/min BUN/Creatinine Ratio (10-20) Glucose (70-99) mg/dl Lactate (0.4-2.0) mmol/L Calcium (8.5-10.1) mg/dl Magnesium (1.8-2.4) mg/dl Total Bilirubin (0.2-1) mg/dl AST (15-37) U/L ALT (12-78) Alkaline Phosphatase (45-117) U/L Troponin I (0-0.045) ng/ml Total Protein (6.4-8.2) gm/dl Albumin (3.4-5.0) gm/dl Globulin (2.5-4.0) gm/dl Albumin/Globulin Ratio (0.9-2) Procalcitonin (0-0.5) ng/ml TSH (0.300-4.500) uIu/ml Anaplasma Smear See Comment Babesia Smear See Comment Lyme Disease IgG Ab Negative (Negative) Lyme Disease IgM Ab Negative (Negative) SARS-CoV-2, RNA, NAAT NEGATIVE (NEGATIVE) Administered Medications Ciprofloxacin/Dexamethasone (Cipro 0.3%/Dexamethasone 0.1% Otic Susp 7.5ml) 2 drops OT QID [facility] Stop: 02/21/21 20:59 Last Admin: 01/22/21 19:05 Dose: 2 drops Documented by: [id number] Discontinued Medications Acetaminophen (Acetaminophen 500 Mg Tab) 1,000 mg PO NOW STA Stop: 01/22/21 16:16 Last Admin: 01/22/21 16:48 Dose: 1,000 mg Documented by: [id number] Sodium Chloride (Nss 1000ml) 1,000 mls @ 999 mls/hr IV .Q1H1M [facility] Stop: 01/22/21 17:15 Last Admin: 01/22/21 16:48 Dose: 999 mls/hr Documented by: [id number] Magnesium Sulfate/Dextrose (Magnesium Sulfate / D5w) 1 gm in 100 mls @ 200 mls/hr IV Q30M [facility] Stop: 01/22/21 18:14 Last Admin: 01/22/21 19:08 Dose: 200 mls/hr Documented by: [id number] Ioversol (Optiray 320 125ml) 120 ml IV ONCE ONE Stop: 01/22/21 18:29 Last Admin: 01/22/21 18:28 Dose: 1 ml Documented by: [id number] Ondansetron HCl (Ondansetron Inj 2 Mg/Ml 2 Ml Vial) 4 mg IV NOW STA Stop: 01/22/21 16:16 Last Admin: 01/22/21 16:48 Dose: 4 mg Documented by: [id number] Imaging Data Radiologist's Impression: Head CT 01/22/21 16:15 CT OF THE HEAD WITHOUT CONTRAST CLINICAL HISTORY: weakness, left headache, dizzy, nausea, HTN COMPARISON STUDY: No previous studies for comparison. CT DOSE: 823.12 mGy.cm TECHNIQUE: Helical axial images of the head were obtained without IV contrast. Automated exposure control was utilized for the study. A dose lowering [place] was utilized adhering to the principles of ALARA. FINDINGS: No acute intracranial hemorrhage, midline shift or mass effect is present. The ventricular system is unremarkable. The basal cisterns are patent. No extra-axial collections are present. There are no findings to suggest acute dural sinus thrombosis or acute territorial infarct. No significant calvarial abnormalities are present. Visualized portions of the sinuses and mastoid air cells are clear. Metallic density within the oral cavity is noted. IMPRESSION: No acute intracranial findings. ACT 112: Negative or not required by law. Electronically signed by: Hamzah Anthony M.D. 01/22/2021 5:44 PM Chest X-Ray 01/22/21 16:16 XR chest 1V portable HISTORY: weakness COMPARISON: None. FINDINGS: No focal lung consolidations to suggest pneumonia. No evidence for pulmonary edema. The cardiac silhouette is mildly enlarged. Small linear scarlike density within the left lower lung zone. There is mild elevation of the right hemidiaphragm. There are low lung volumes. IMPRESSION: 1. Mild cardiomegaly. 2. No focal lung consolidations to suggest pneumonia. 3. Mild elevation of the right hemidiaphragm. ACT 112: Negative or not required by law. Electronically signed by: Miguel Lawrence M.D. 01/22/2021 5:00 PM Head CTA 01/22/21 17:36 HEAD & NECK CTA HISTORY: headache confusion TECHNIQUE: Multiaxial CT images of the head were performed following the intravenous administration of contrast to evaluate the major cerebral vessels. Multiaxial CT images of the neck were also performed following the intravenous administration of contrast to evaluate the major cervical vessels. Maximum intensity projection images were also obtained. A dose lowering technique was utilized adhering to the principles of ALARA. COMPARISON: Head CT 01/22/2021. FINDINGS: There is no mass, hematoma, midline shift, or acute infarct. Visualized intracranial left internal carotid artery, distal vertebral arteries, and basilar artery are widely patent. There is no significant stenosis, occlusion, or aneurysm seen within the bilateral ACAs, MCAs, or obstetrician and gynaecologist. Mild calcified plaque within the bilateral carotid siphons and distal vertebral arteries. Approximately 75% focal stenosis within the supraclinoid right ICA. Remaining portions of the right internal carotid artery are patent. The major dural venous sinuses are patent. The aortic arch and proximal great vessels are widely patent. No occlusion or dissection within the bilateral common carotid, internal carotid, or vertebral arteries. No significant stenosis within the vertebral arteries. Moderate calcified plaque within the bilateral carotid bifurcations. This results in approximately 30% focal stenosis at the takeoff of the left internal carotid artery. No significant stenosis within the right internal carotid artery. IMPRESSION: 1. No occlusion or aneurysm within the [place]. 2. Approximately 75% focal stenosis within the supraclinoid right ICA. 3. Approximately 30% focal stenosis at the takeoff of the left internal carotid artery. 4. The bilateral vertebral arteries are patent. ACT 112: Negative or not required by law. Electronically signed by: Miguel Lawrence M.D. 01/22/2021 6:44 PM Neck CTA 01/22/21 17:36 HEAD & NECK CTA HISTORY: headache confusion TECHNIQUE: Multiaxial CT images of the head were performed following the intravenous administration of contrast to evaluate the major cerebral vessels. Multiaxial CT images of the neck were also performed following the intravenous administration of contrast to evaluate the major cervical vessels. Maximum intensity projection images were also obtained. A dose lowering technique was utilized adhering to the principles of ALARA. COMPARISON: Head CT 01/22/2021. FINDINGS: There is no mass, hematoma, midline shift, or acute infarct. Visualized intracranial left internal carotid artery, distal vertebral arteries, and basilar artery are widely patent. There is no significant stenosis, occlusion, or aneurysm seen within the bilateral ACAs, MCAs, or obstetrician and gynaecologist. Mild calcified plaque within the bilateral carotid siphons and distal vertebral arteries. Approximately 75% focal stenosis within the supraclinoid right ICA. Remaining portions of the right internal carotid artery are patent. The major dural venous sinuses are patent. The aortic arch and proximal great vessels are widely patent. No occlusion or dissection within the bilateral common carotid, internal carotid, or vertebral arteries. No significant stenosis within the vertebral arteries. Moderate calcified plaque within the bilateral carotid bifurcations. This results in approximately 30% focal stenosis at the takeoff of the left internal carotid artery. No significant stenosis within the right internal carotid artery. IMPRESSION: 1. No occlusion or aneurysm within the [place]. 2. Approximately 75% focal stenosis within the supraclinoid right ICA. 3. Approximately 30% focal stenosis at the takeoff of the left internal carotid artery. 4. The bilateral vertebral arteries are patent. ACT 112: Negative or not required by law. Electronically signed by: Miguel Lawrence M.D. 01/22/2021 6:44 PM Discharge Plan Visit Data Chief Complaint: Confusion ED Provider: Vasu Vidales Discharge Problem: Confusion, Hypertension, Acute otitis externa of left ear, Dizziness, Hypomagnesemia Patient Disposition: Being Evaluated by Hospitalist Forms Stand Alone Forms: My [facility] Prescriptions Prescriptions: No Action insulin glargine 100 unit/mL solution 30 unit subcut BID RF: 0 atorvastatin 10 mg tablet 10 mg PO PM RF: 0 glyburide 5 mg Tablet 5 mg PO BID RF: 0 aspirin 81 mg Tablet,Delayed Release (Dr/Ec) 81 mg PO DAILY RF: 0 quinapril 40 mg tablet 40 mg PO DAILY RF: 0 metformin 1,000 mg tablet 1,000 mg PO BID RF: 0 hydrochlorothiazide 25 mg tablet 25 mg PO DAILY RF: 0 triamcinolone acetonide [Aristocort] 0.1 % Cream 1 applic TOPICAL DAILY PRN (Reason: Skin Irritation) RF: 0 triamcinolone acetonide [Nasacort Allergy] 55 mcg Aerosol,[place] 1 spray INTRANASAL DAILY PRN (Reason: NEEDED) RF: 0 mupirocin [Bactroban] 2 % Ointment 1 applic TOPICAL BID PRN (Reason: SORES ON FOOT) RF: 0 fluocinonide 0.05 % Cream 1 applic TOPICAL BID PRN (Reason: ITCHINESS/SKIN IRRITATION) RF: 0 loratadine [Claritin] 10 mg Tablet 10 mg PO DAILY RF: 0 vardenafil 20 mg Tablet 20 mg PO DAILY PRN (Reason: IMPOTENCE OF ORGANIC ORIGIN) RF: 0 Saccharomyces boulardii [Florastor] 250 mg Capsule 250 mg PO BID RF: 0 Trulicity 0.75 mg/0.5 mL Pen Injector 0.75 mg SUBCUT WK RF: 0 Referrals Referrals: Fabian Escoto DO [Primary Care Provider] - Discharge Problem: Hypertension Qualifiers: Hypertension type: unspecified Qualified Code(s): I10 - Essential (primary) hypertension Acute otitis externa of left ear Qualifiers: Otitis externa type: unspecified type Qualified Code(s): H60.502 - Unspecified acute noninfective otitis externa, left ear
--- NOTE | 2021-01-22 17:45 | CT Scan Report ---
CT OF THE HEAD WITHOUT CONTRAST CLINICAL HISTORY: weakness, left headache, dizzy, nausea, HTN COMPARISON STUDY: No previous studies for comparison. CT DOSE: 823.12 mGy.cm TECHNIQUE: Helical axial images of the head were obtained without IV contrast. Automated exposure con trol was utilized for the study. A dose lowering technique was utilized adhering to the principles o f ALARA. FINDINGS: No acute intracranial hemorrhage, midline shift or mass effect is present. The ventricular system is unremarkable. The basal cisterns are patent. No extra-axial collections are present. There are no findings to suggest acute dural sinus thrombosis or acute territorial infarct. No significant calvarial abnormalities are present. Visualized portions of the sinuses and mastoid air cells are sp[place] ar. Metallic density within the oral cavity is noted. IMPRESSION: No acute intracranial findings. ACT 112: Negative or not required by law. Electronically signed by: Hamzah Anthony M.D. 01/22/2021 5:44 PM
[2021-01-22] MEDS ORDERED: OPTIRAY 320 125ml IV ONE (18:28)
[2021-01-22] MEDS ORDERED: cefTRIAXone SODIUM 2,000 MG/70 ML BAG IV STA (18:44)
--- NOTE | 2021-01-22 18:45 | CT Scan Report ---
HEAD & NECK CTA HISTORY: headache confusion TECHNIQUE: Multiaxial CT images of the head were performed following the intravenous administration o f contrast to evaluate the major cerebral vessels. Multiaxial CT images of the neck were also perform ed following the intravenous administration of contrast to evaluate the major cervical vessels. Maxim um intensity projection images were also obtained. A dose lowering technique was utilized adhering to the principles of ALARA. COMPARISON: Head CT 01/22/2021. FINDINGS: There is no mass, hematoma, midline shift, or acute infarct. Visualized intracranial left internal ca rotid artery, distal vertebral arteries, and basilar artery are widely patent. There is no significan t stenosis, occlusion, or aneurysm seen within the bilateral ACAs, MCAs, or nuclear power reactor operator. Mild calcified plaq ue within the bilateral carotid siphons and distal vertebral arteries. Approximately 75% focal stenos is within the supraclinoid right ICA. Remaining portions of the right internal carotid artery are pat ent. The major dural venous sinuses are patent. The aortic arch and proximal great vessels are widely patent. No occlusion or dissection within the bilateral common carotid, internal carotid, or vertebral arteries. No significant stenosis within th e vertebral arteries. Moderate calcified plaque within the bilateral carotid bifurcations. This resul ts in approximately 30% focal stenosis at the takeoff of the left internal carotid artery. No signifi cant stenosis within the right internal carotid artery. IMPRESSION: 1. No occlusion or aneurysm within the [place]. 2. Approximately 75% focal stenosis within the supraclinoid right ICA. 3. Approximately 30% focal stenosis at the takeoff of the left internal carotid artery. 4. The bilateral vertebral arteries are patent. ACT 112: Negative or not required by law. Electronically signed by: Miguel Lawrence M.D. 01/22/2021 6:44 PM
--- NOTE | 2021-01-22 18:45 | CT Scan Report ---
HEAD & NECK CTA HISTORY: headache confusion TECHNIQUE: Multiaxial CT images of the head were performed following the intravenous administration o f contrast to evaluate the major cerebral vessels. Multiaxial CT images of the neck were also perform ed following the intravenous administration of contrast to evaluate the major cervical vessels. Maxim um intensity projection images were also obtained. A dose lowering technique was utilized adhering to the principles of ALARA. COMPARISON: Head CT 01/22/2021. FINDINGS: There is no mass, hematoma, midline shift, or acute infarct. Visualized intracranial left internal ca rotid artery, distal vertebral arteries, and basilar artery are widely patent. There is no significan t stenosis, occlusion, or aneurysm seen within the bilateral ACAs, MCAs, or net software developer. Mild calcified plaq ue within the bilateral carotid siphons and distal vertebral arteries. Approximately 75% focal stenos is within the supraclinoid right ICA. Remaining portions of the right internal carotid artery are pat ent. The major dural venous sinuses are patent. The aortic arch and proximal great vessels are widely patent. No occlusion or dissection within the bilateral common carotid, internal carotid, or vertebral arteries. No significant stenosis within th e vertebral arteries. Moderate calcified plaque within the bilateral carotid bifurcations. This resul ts in approximately 30% focal stenosis at the takeoff of the left internal carotid artery. No signifi cant stenosis within the right internal carotid artery. IMPRESSION: 1. No occlusion or aneurysm within the [place]. 2. Approximately 75% focal stenosis within the supraclinoid right ICA. 3. Approximately 30% focal stenosis at the takeoff of the left internal carotid artery. 4. The bilateral vertebral arteries are patent. ACT 112: Negative or not required by law. Electronically signed by: Miguel Lawrence M.D. 01/22/2021 6:44 PM
[2021-01-22 19:05] LABS: Lyme Ab IgG w/WB Rflx Negative (Negative); Lyme Ab IgM w/WB Rflx Negative (Negative)
[2021-01-22] MEDS: CIPRO 0.3%/DEXAMETHASONE 0.1% OTIC SUSP 7.5ML OT SCH (19:05)
[2021-01-22] MEDS: MAGNESIUM SULFATE / D5W 1 GM/100 ML BAG IV SCH ×2 (19:08→20:08)
[2021-01-22 19:17] LABS: Influenza A virus by PCR Negative (Negative); Influenza B virus by PCR Negative (Negative)
[2021-01-22] MEDS ORDERED: LACTATED RINGER'S 1,000 ML IV ONE (19:40)
[2021-01-22 20:47] LABS: Partial Thromboplastin Ratio 0.8; Partial Thromboplastin Time 21.8 Seconds (21.0-31.0)
[2021-01-22] MEDS ORDERED: ALBUT/IPRATROP 3MG/0.5MG NEB 3 ML VIAL NEB STA (20:49)
[2021-01-22] MEDS ORDERED: guaiFENesin SUGAR FREE 100 MG/5 ML UDC PO STA (20:50)
--- NOTE | 2021-01-22 20:54 | History & Physical Report ---
Date of Service January 22, 2021 Assessment & Plan (1) Confusion: Plan: Transient episode Multifactorial : Uncontrolled hypertension Mild clinical dehydration Rule out intracranial complication from recurrent left ear infections Rule out UTI hyperlipidemia, on statin Rx DM2 insulin requiring, suboptimal control as of recent hemoglobin A1c of 7.27 December 2020 past tobacco abuse OBS Medical telemetry Titrate home BP meds Gentle IV hydration, hold home diuretic until patient euvolemic MRI brain Re: Vertigo, transient apraxia, recurrent ear infections Topical antibiotic/steroid Rx for otitis externa left check UA Further management pending work-up results. Basal insulin, ISS BG goal 1 10-1 40, carb count coverage DVT prophylaxis. Lovenox subcu Full code Text document was generated using [employer] voice recognition software. It may contain grammatical or spelling errors. Kindly contact undersigned for clarification of any documentation item in question. History of Present Illness Chief Complaint: Did not feel well, confusion, left ear pain, dizziness Primary Care Provider: Fabian Escoto DO History obtained from patient and records. Medical history significant for hypertension, hyperlipidemia, DM2 insulin requiring, ISABEL (CPAP intolerance as per records), past tobacco abuse. Last confinement February 2018 for right foot cellulitis. Prescribed amoxicillin course last month by PCP for otitis media as per records. Symptoms responded to treatment. Patient started feeling unwell this afternoon, achy left-sided headache associated with left ear pain without discharge. Vertigo symptoms as per patient. Patient felt confused. Transient trouble operating the TV remote. Patient denies chest pain, S OB. Usual dry cough symptoms as per patient. No fever, no chills. Patient brought to the ER for evaluation. Initial SBP at the ER 180s. IV Ceftriaxone given at the ER. Patient feels much better. Medical History as above Surgical History : Knee surgery, testicular cyst surgery, sinus surgery, finger tendon sheath surgery Family History : Heart disease, stroke Personal/Social history : Past tobacco abuse, occasional EtOH intake Allergies Allergy/AdvReac Type Severity Reaction Status Date / Time clavulanic acid Allergy Severe Unknown Verified 01/22/21 16:58 Home Medications Medication Instructions Recorded Confirmed Type glyburide 5 mg tablet 5 mg PO BID 02/17/18 01/22/21 History hydrochlorothiazide 25 mg tablet 25 mg PO DAILY 02/17/18 01/22/21 History insulin glargine 100 unit/mL 30 unit SUBCUT BID 02/17/18 01/22/21 History subcutaneous solution metformin 1,000 mg tablet 1,000 mg PO BID 02/17/18 01/22/21 History quinapril 40 mg tablet 40 mg PO DAILY 02/17/18 01/22/21 History Saccharomyces boulardii 250 mg 250 mg PO BID 01/22/21 01/22/21 History capsule (Florastor) dulaglutide 0.75 mg/0.5 mL 0.75 mg SUBCUT WK 01/22/21 01/22/21 History subcutaneous pen injector (Trulicity) fluocinonide 0.05 % topical cream 1 applic TOPICAL BID PRN 01/22/21 01/22/21 History loratadine 10 mg tablet (Claritin) 10 mg PO DAILY 01/22/21 01/22/21 History mupirocin 2 % topical ointment 1 applic TOPICAL BID PRN 01/22/21 01/22/21 History triamcinolone acetonide 0.1 % 1 applic TOPICAL DAILY PRN 01/22/21 01/22/21 History topical cream triamcinolone acetonide 55 mcg 1 spray INTRANASAL DAILY PRN 01/22/21 01/22/21 History nasal spray aerosol (Nasacort Allergy) vardenafil 20 mg tablet 20 mg PO DAILY PRN 01/22/21 01/22/21 History atorvastatin 10 mg tablet 20 mg PO PM #0 tab 01/23/21 01/22/21 Rx ciprofloxacin 0.3 %-dexamethasone 2 drp OTIC (EAR) QID #7.5 ml 01/23/21 Rx 0.1 % ear drops,suspension clopidogrel 75 mg tablet (Plavix) 75 mg PO DAILY #30 tab 01/23/21 Rx Past Med/Surg History Medical History (Updated 01/22/21 @ 19:01 by Vasu Vidales M.D.) Diabetes mellitus, type II Dyslipidemia GERD (gastroesophageal reflux disease) Hypertension Melanoma Obesity ISABEL (obstructive sleep apnea) Surgical History (Updated 02/17/18 @ 09:15 by Rahel Bustillo PA-C) History of arthroplasty of left knee Family History (Updated 02/17/18 @ 10:33 by Rahel Bustillo PA-C) Other Coronary heart disease Stroke Social History (Updated 02/17/18 @ 09:16 by JEROMY Doss Smoking Status: Former smoker Second Hand Exposure: No; Hx Alcohol Use: Yes Alcohol type: beer Alcohol Intake Frequency Comment: 2 beers once a year Hx Substance Use: No Preferred Language: Portuguese Communication Ability: Effective Aircraft Communicator Required: No Beliefs That Will Affect Care: None marital status: Current Living Situation: Spouse Other Information That Helps Us Care for You: No Feels Safe at Home: Yes Safety Concerns: Feels Safe At This Time Assistive Devices: Cane, Glasses and Walker Review of Systems Review of Systems: As per HPI, all 10 systems reviewed, all other ROS negative Physical Exam Physical Exam: GENERAL: Slightly uncomfortable, audible wheezing, morbidly obese, no respiratory distress SKIN: Normal color,, warm HEENT: [place] palpebral conjunctivae, no ptosis, dry buccal mucosa; right ear : No obvious discharge, stenotic external auditory canal, TM could not be visualized left ear : No discharge, intact TM NECK : Supple, short neck, no tenderness CHEST : Decreased breath sounds, expiratory wheezes, no tenderness HEART : RRR, systolic murmur noted over sternal border and second right intercostal space ABDOMEN: Some distention, nontender EXTREMITIES : Minimal LE swelling, no LE tenderness, no other conspicuous deformities noted NEUROLOGIC : Coherent, no facial asymmetry, no other gross focality Results & Data Results & Data ([facility]) Vital Signs (Past 12 Hours) Vital Signs Temp Pulse Pulse Resp BP BP Pulse Ox 01/22/21 18:48 84 20 176/77 H 95 01/22/21 17:48 94 H 22 154/76 H 91 01/22/21 16:16 91 01/22/21 16:05 36.6 C 95 H 20 183/104 H 95 01/22/21 15:48 94 H 22 94 Laboratory Results Laboratory Results WBC 11.00 K/uL (4.8-10.8) H 01/22/21 16:24 RBC 4.76 M/uL (4.7-6.1) 01/22/21 16:24 Hgb 14.6 g/dL (14.0-18.0) 01/22/21 16:24 Hct 43.9 % (42-52) 01/22/21 16:24 MCV 92.2 fL (80-100) 01/22/21 16:24 MCH 30.7 pg (25-34) 01/22/21 16:24 MCHC 33.3 g/dL (32-36) 01/22/21 16:24 RDW Std Deviation 45.6 fL (36.4-46.3) 01/22/21 16:24 RDW Coeff of [place] 13.6 % (11.5-14.5) 01/22/21 16:24 Plt Count 262 K/uL (130-400) 01/22/21 16:24 MPV 11.0 fL (7.4-10.4) H 01/22/21 16:24 Immature Gran % (Auto) 0.1 % 01/22/21 16:24 Neut % (Auto) 59.9 % 01/22/21 16:24 Lymph % (Auto) 27.4 % 01/22/21 16:24 [place] % (Auto) 9.1 % 01/22/21 16:24 Eos % (Auto) 3.3 % 01/22/21 16:24 Baso % (Auto) 0.2 % 01/22/21 16:24 Neut # (Auto) 6.60 K/uL (1.4-6.5) H 01/22/21 16:24 Lymph # (Auto) 3.01 K/uL (1.2-3.4) 01/22/21 16:24 [place] # (Auto) 1.00 K/uL (0.11-0.59) H 01/22/21 16:24 Eos # (Auto) 0.36 K/uL (0-0.5) 01/22/21 16:24 Baso # (Auto) 0.02 K/uL (0-0.2) 01/22/21 16:24 Immature Gran # (Auto) 0.01 K/uL (0.00-0.02) 01/22/21 16:24 APTT 21.8 Seconds (21.0-31.0) 01/22/21 16:24 PTT Ratio 0.8 01/22/21 16:24 Sodium 140 mmol/L (136-145) 01/22/21 16:24 Potassium 3.9 mmol/L (3.5-5.1) 01/22/21 16:24 Chloride 103 mmol/L (98-107) 01/22/21 16:24 Carbon Dioxide 26 mmol/L (21-32) 01/22/21 16:24 Anion Gap 12.0 (3-11) H 01/22/21 16:24 BUN 21 mg/dl (7-18) H 01/22/21 16:24 Creatinine 1.38 mg/dl (0.6-1.4) 01/22/21 16:24 Est Cr Clr Drug Dosing 60.4 ml/min 01/22/21 16:24 Est GFR ( Amer) 57.6 ml/min 01/22/21 16:24 Est GFR (Non-Af Amer) 49.7 ml/min 01/22/21 16:24 BUN/Creatinine Ratio 15.1 (10-20) 01/22/21 16:24 Glucose 171 mg/dl (70-99) H 01/22/21 16:24 Lactate 2.2 mmol/L (0.4-2.0) H* 01/22/21 18:50 Calcium 8.9 mg/dl (8.5-10.1) 01/22/21 16:24 Magnesium 1.7 mg/dl (1.8-2.4) L 01/22/21 16:24 Total Bilirubin 0.4 mg/dl (0.2-1) 01/22/21 16:24 AST 27 U/L (15-37) 01/22/21 16:24 ALT 50 (12-78) 01/22/21 16:24 Alkaline Phosphatase 74 U/L (45-117) 01/22/21 16:24 Troponin I < 0.015 ng/ml (0-0.045) 01/22/21 16:24 Total Protein 7.0 gm/dl (6.4-8.2) 01/22/21 16:24 Albumin 3.1 gm/dl (3.4-5.0) L 01/22/21 16:24 Globulin 3.9 gm/dl (2.5-4.0) 01/22/21 16:24 Albumin/Globulin Ratio 0.8 (0.9-2) L 01/22/21 16:24 Procalcitonin < 0.05 ng/ml (0-0.5) 01/22/21 16:24 TSH 3.020 uIu/ml (0.300-4.500) 01/22/21 16:24 Anaplasma Smear See Comment 01/22/21 16:24 Babesia Smear See Comment 01/22/21 16:24 Lyme Disease IgG Ab Negative (Negative) 01/22/21 16:35 Lyme Disease IgM Ab Negative (Negative) 01/22/21 16:35 Influ A Molecular Assay Negative (Negative) 01/22/21 18:50 Influ B Molecular Assay Negative (Negative) 01/22/21 18:50 SARS-CoV-2, RNA, NAAT NEGATIVE (NEGATIVE) 01/22/21 16:[address] 01/22/21 16:15 CT OF THE HEAD WITHOUT CONTRAST CLINICAL HISTORY: weakness, left headache, dizzy, nausea, HTN COMPARISON STUDY: No previous studies for comparison. CT DOSE: 823.12 mGy.cm TECHNIQUE: Helical axial images of the head were obtained without IV contrast. Automated exposure control was utilized for the study. A dose lowering technique was utilized adhering to the principles of ALARA. FINDINGS: No acute intracranial hemorrhage, midline shift or mass effect is present. The ventricular system is unremarkable. The basal cisterns are patent. No extra-axial collections are present. There are no findings to suggest acute dural sinus thrombosis or acute territorial infarct. No significant calvarial abnormalities are present. Visualized portions of the sinuses and mastoid air cells are clear. Metallic density within the oral cavity is noted. IMPRESSION: No acute intracranial findings. ACT 112: Negative or not required by law. Electronically signed by: Hamzah Anthony M.D. 01/22/2021 5:44 PM Chest X-Ray 01/22/21 16:16 XR chest 1V portable HISTORY: weakness COMPARISON: None. FINDINGS: No focal lung consolidations to suggest pneumonia. No evidence for pulmonary edema. The cardiac silhouette is mildly enlarged. Small linear scarlike density within the left lower lung zone. There is mild elevation of the right hemidiaphragm. There are low lung volumes. IMPRESSION: 1. Mild cardiomegaly. 2. No focal lung consolidations to suggest pneumonia. 3. Mild elevation of the right hemidiaphragm. ACT 112: Negative or not required by law. Electronically signed by: Miguel Lawrence M.D. 01/22/2021 5:00 PM Head CTA 01/22/21 17:36 HEAD & NECK CTA HISTORY: headache confusion TECHNIQUE: Multiaxial CT images of the head were performed following the intravenous administration of contrast to evaluate the major cerebral vessels. Multiaxial CT images of the neck were also performed following the intravenous administration of contrast to evaluate the major cervical vessels. Maximum intensity projection images were also obtained. A dose lowering technique was utilized adhering to the principles of ALARA. COMPARISON: Head CT 01/22/2021. FINDINGS: There is no mass, hematoma, midline shift, or acute infarct. Visualized intracranial left internal carotid artery, distal vertebral arteries, and basilar artery are widely patent. There is no significant stenosis, occlusion, or aneurysm seen within the bilateral ACAs, MCAs, or trouble locator test desk. Mild calcified plaque within the bilateral carotid siphons and distal vertebral arteries. Approximately 75% focal stenosis within the supraclinoid right ICA. Remaining portions of the right internal carotid artery are patent. The major dural venous sinuses are patent. The aortic arch and proximal great vessels are widely patent. No occlusion or dissection within the bilateral common carotid, internal carotid, or vertebral arteries. No significant stenosis within the vertebral arteries. Moderate calcified plaque within the bilateral carotid bifurcations. This results in approximately 30% focal stenosis at the takeoff of the left internal carotid artery. No significant stenosis within the right internal carotid artery. IMPRESSION: 1. No occlusion or aneurysm within the [place]. 2. Approximately 75% focal stenosis within the supraclinoid right ICA. 3. Approximately 30% focal stenosis at the takeoff of the left internal carotid artery. 4. The bilateral vertebral arteries are patent. ACT 112: Negative or not required by law. Electronically signed by: Miguel Lawrence M.D. 01/22/2021 6:44 PM Neck CTA 01/22/21 17:36 HEAD & NECK CTA HISTORY: headache confusion TECHNIQUE: Multiaxial CT images of the head were performed following the intravenous administration of contrast to evaluate the major cerebral vessels. Multiaxial CT images of the neck were also performed following the intravenous administration of contrast to evaluate the major cervical vessels. Maximum intensity projection images were also obtained. A dose lowering technique was utilized adhering to the principles of ALARA. COMPARISON: Head CT 01/22/2021. FINDINGS: There is no mass, hematoma, midline shift, or acute infarct. Visualized intracranial left internal carotid artery, distal vertebral arteries, and basilar artery are widely patent. There is no significant stenosis, occlusion, or aneurysm seen within the bilateral ACAs, MCAs, or trouble locator test desk. Mild calcified plaque within the bilateral carotid siphons and distal vertebral arteries. Approximately 75% focal stenosis within the supraclinoid right ICA. Remaining portions of the right internal carotid artery are patent. The major dural venous sinuses are patent. The aortic arch and proximal great vessels are widely patent. No occlusion or dissection within the bilateral common carotid, internal carotid, or vertebral arteries. No significant stenosis within the vertebral arteries. Moderate calcified plaque within the bilateral carotid bifurcations. This results in approximately 30% focal stenosis at the takeoff of the left internal carotid artery. No significant stenosis within the right internal carotid artery. IMPRESSION: 1. No occlusion or aneurysm within the [place]. 2. Approximately 75% focal stenosis within the supraclinoid right ICA. 3. Approximately 30% focal stenosis at the takeoff of the left internal carotid artery. 4. The bilateral vertebral arteries are patent. ACT 112: Negative or not required by law. Electronically signed by: Miguel Lawrence M.D. 01/22/2021 6:44 PM Diagnostic Findings EKG as per my interpretation: Rate 90, NSR, 1 AVB, no ischemia
[2021-01-22 22:38] LABS: Appearance Urine Clear (Clear); Bacteria Urine Automated Negative (Negative); Bilirubin Urine Negative (Negative); Blood Urine Trace (Negative); Color Urine Yellow; Glucose Urine UA 2+ (Negative); Ketones Urine Negative (Negative); Leukocyte Esterase Urine Negative (Negative); Nitrite Urine Negative (Negative); Protein Urine 2+ (Negative); RBC Urine Automated 0-4 /hpf (0-4); Specific Gravity Urine > 1.045 (1.000-1.030); Urobilinogen Urine Negative (Negative)
[2021-01-23] MEDS ORDERED: DEXTROSE 50% 50 ML SYRINGE IV PRN (00:56)
[2021-01-23] MEDS ORDERED: GLUCOSE 40% GEL 15 GM TUBE PO PRN (00:56)
[2021-01-23] MEDS ORDERED: GLUCAGON FOR INJ 1 MG VIAL SQ PRN (00:56)
[2021-01-23] MEDS ORDERED: GLUCOSE 10 TABS/TUBE PO PRN (00:56)
[2021-01-23] MEDS ORDERED: traMADol HCL 50 MG TABLET PO PRN (00:56)
[2021-01-23] MEDS ORDERED: ACETAMINOPHEN 325 MG TAB PO PRN (00:56)
[2021-01-23] MEDS ORDERED: CARBOHYDRATES FOR HYPOGLYCEMIA PO PRN (00:56)
[2021-01-23] MEDS ORDERED: INSULIN GLARGINE SOLOSTAR 100 UNITS/ML 3 ML PEN SQ SCH ×2 (01:30→21:00)
[2021-01-23] MEDS ORDERED: ATORVASTATIN 10 MG TAB PO SCH (01:30)
[2021-01-23] MEDS ORDERED: GADOBUTROL 65ML VIAL IV ONE (01:47)
[2021-01-23] MEDS: INSULIN ASPART 100 UNITS/ML VIAL SC SCH ×3 (02:11→12:05)
[2021-01-23] MEDS: INSULIN GLARGINE SOLOSTAR 100 UNITS/ML 3 ML PEN SQ SCH ×2 (02:12→09:44)
[2021-01-23] MEDS: CIPRO 0.3%/DEXAMETHASONE 0.1% OTIC SUSP 7.5ML OT SCH ×2 (07:31→12:07)
--- NOTE | 2021-01-23 07:50 | Magnetic Resonance Report ---
MRI OF THE BRAIN WITHOUT AND WITH IV CONTRAST CLINICAL HISTORY: Headaches, recurrent ear infections, transient apraxia COMPARISON STUDY: Head CT and CTA of the head January 22, 2021. TECHNIQUE: Utilizing a 1.5 Danielle magnet and dedicated coil, multiplanar, multiecho imaging of the br ain was performed pre and postcontrast administration. IV administration of 12 mL of [address] contra [address] was uneventful. FINDINGS: There are no foci of restricted diffusion to suggest acute infarct. No acute intracranial h emorrhage, midline shift or mass effect is present. Ventricular system is unremarkable. Basal cistern s are patent. There are no extra-axial collections. Flow-voids for the major intracranial vessels are present. There is no intracranial mass or pathologic enhancement. There is mild atrophy. There is mi nimal periventricular white matter T2 hyperintensity. Small amount of fluid within the left mastoid a ir cells is noted. Calvarial signal is normal. Orbits are unremarkable. There is no evidence for sinu sitis. IMPRESSION: 1. No acute intracranial findings. 2. No intracranial mass or pathologic enhancement. 3. Small amount of fluid within the left mastoid air cells. ACT 112: Negative or not required by law. Electronically signed by: Hamzah Anthony M.D. 01/23/2021 7:48 AM
[2021-01-23] MEDS ORDERED: ENOXAPARIN INJ 40 MG/0.4 ML SYR SQ SCH (09:00)
[2021-01-23] MEDS ORDERED: ASPIRIN 81 MG ECTAB PO SCH (09:00)
[2021-01-23] MEDS ORDERED: LORATADINE 10 MG TAB PO SCH (09:00)
[2021-01-23] MEDS ORDERED: PHARMACY GLYCEMIC MGMT CONSULT PRN (09:07)
[2021-01-23 09:44] LABS: Basophils # (auto) 0.01 K/uL (0-0.2); Basophils % (auto) 0.1 %; Eosinophils # (auto) 0.27 K/uL (0-0.5); Eosinophils % (auto) 3.2 %; Hematocrit (blood only) 43.5 % (42-52); Immature Granulocytes # (auto) 0.02 K/uL (0.00-0.02); Immature Granulocytes % (auto) 0.2 %; Lymphocytes # (auto) 2.17 K/uL (1.2-3.4); Lymphocytes % (auto) 25.6 %; Mean Corpuscular Hemoglobin 30.1 pg (25-34); Mean Corpuscular Hgb Conc 32.2 g/dL (32-36); Mean Corpuscular Volume 93.5 fL (80-100); Mean Platelet Volume 10.9 fL (7.4-10.4); Monocytes # (auto) 1.13 K/uL (0.11-0.59); Monocytes % (auto) 13.3 %; Neutrophils # (auto) 4.88 K/uL (1.4-6.5); Neutrophils % (auto) 57.6 %; Platelet Count 235 K/uL (130-400); RDW Coefficient of Variation 13.7 % (11.5-14.5); RDW Standard Deviation 46.5 fL (36.4-46.3); Red Blood Count 4.65 M/uL (4.7-6.1); White Blood Count 8.48 K/uL (4.8-10.8)
[2021-01-23] MEDS ORDERED: INSULIN GLARGINE SOLOSTAR 100 UNITS/ML 3 ML PEN SQ ONE (09:45)
[2021-01-23 10:20] LABS: BUN Creatinine Ratio 13.8 (10-20); Calcium 8.8 mg/dl (8.5-10.1); Creatinine Clr Calc Pharmacy 85.1 ml/min; Est GFR (African American) 88.1 ml/min; Est GFR (Non-African American) 76.1 ml/min; Magnesium 2.2 mg/dl (1.8-2.4)
[2021-01-23] MEDS ORDERED: hydroCHLOROthiazide 25 MG TAB PO SCH (11:15)
[2021-01-23] MEDS ORDERED: ENALAPRIL MALEATE 10 MG TAB PO SCH (11:30)
--- NOTE | 2021-01-23 12:47 | Pharmacy Report ---
Pharmacy Glycemic Short Note 2 - Date of Service January 23, 2021 - Glycemic Short BSG Results (Last 24 hours): 01/22/21 01/23/21 01/23/21 16:24 02:08 09:08 Glucose 171 H 216 H POC Glucose 247 H 01/23/21 11:05 Glucose POC Glucose 238 H OUTPATIENT ANTIDIABETIC REGIMEN: * Metformin 1000 mg PO BIDM * Glyburide 5 mg PO BIDM * Lantus 40 units SC AM + 20 units SC PM * Trulicity 1.5 mg SC weekly * HbA1c = 7.9% (12/20/20) ASSESSMENT: * 75 yo M admitted secondary to confusion. Pharmacy has been consulted to assist with inpatient glycemic management. * BSG was 247 mg/dL upon admission at ~0200 this AM. Patient received 10 units Lantus + 5 units Novolog at that time. * Pharmacy was consulted at ~0930 this AM. * Gave an additional 20 units of Lantus to total 30 units this AM. * Tightened Novolog parameters as well given hyperglycemia. * Will add a scaled Lantus dose this evening depending on BSGs. PLAN FOR INPATIENT GLYCEMIC CONTROL: * Hold outpatient oral diabetes medications * Basal insulin * Lantus 10 + 20 units SC AM. Will give 30 units SC AM going forward. * Lantus 10-20 SC PM depending on BSG (see eMAR for more details). * Bolus insulin * NovoLog per scale ACHS or Q6hrs while NPO * Goal Range: Low 110 mg/dL - High 140 mg/dL * Correction Factor: 20 mg/dL/unit * Nutritional / Prandial insulin per carb ratio of 1 unit per 7 grams CHO consumed PLAN FOR DISCHARGE: * To be determined
--- NOTE | 2021-01-23 15:15 | Hospitalist Progress Note ---
Date of Service January 23, 2021 Assessment & Plan (1) Confusion: Plan: Transient Confusion Unclear etiology DD: dehydration UA not suggestive of UTI Blood Cx pending --MRI Brain:No acute intracranial findings. No intracranial mass or pathologic enhancement. Small amount of fluid within the left mastoid air cells. --Head and Neck CTA:No occlusion or aneurysm within the [place]. Approximately 75% focal stenosis within the supraclinoid right ICA. Approximately 30% focal stenosis at the takeoff of the left internal carotid artery. The bilateral vertebral arteries are patent. No rhythm issues on monitor No recurrence of confusion Patient's mental status at baseline Carotid artery disease CTA as above H/O statin Intolerance--patient agrees to increase Lipitor to 20 mg daily Discussed with vascular surgery We will switch aspirin to Plavix Will increase Lipitor to 20 mg daily Advised to follow-up as outpatient Hyperlipidemia on statin DM II HbA1C: 7.27 Dec 2020 Continue insulin therapy while hospitalized Monitor BGs Recent Ear Infection Recently completed course of antibiotics Continue eardrops Advised to follow-up with PCP DVT Px: Lovenox SQ Code Status Full code Admission and Anticipated Discharge Date Admission Date: January 23, 2021 Subjective Patient is seen and examined at bedside States feeling well today No recurrence of confusion Denies any dizziness, nausea, abdominal pain, chest pain, shortness of breath Also denies any focal weakness, headache, blurry vision, speech abnormality, facial deformity No rhythm issues on monitor Eager to get discharged Discussed with vascular surgery today Review of Systems Review of Systems: All systems reviewed & are unremarkable except as noted in Subjective Physical Exam Physical Exam: Physical Exam: Vitals signs as noted above General Appearance:Morbidly Obese, no apparent distress Head: normocephalic, Atraumatic Eyes: normal inspection, EOMI Neck: supple, Trachea midline Respiratory/Chest: Normal breath sounds, CTA, No accessory muscle use Cardiovascular: S1, S2, + murmur Abdomen/GI:Soft, Non tender, Bowel sounds present Extremities/Musculoskeletal:normal inspection, Trace edema Neurologic/Psych:AAOX3, grossly no focal neurological deficits Skin: normal color, warm Results & Data Results & Data ([facility]) Vital Signs (Past 12 Hours) Vital Signs Temp Pulse Resp BP Pulse Ox 01/23/21 10:58 36.7 C 79 17 171/82 H 93 01/23/21 07:21 36.4 C L 77 17 175/84 H 94 01/23/21 03:23 36.9 C 82 20 152/70 H 92 Laboratory Results Short CBC 01/22/21 01/23/21 Range/Units 16:24 09:08 WBC 11.00 H 8.48 (4.8-10.8) K/uL Hgb 14.6 14.0 (14.0-18.0) g/dL Hct 43.9 43.5 (42-52) % Plt Count 262 235 (130-400) K/uL BMP 01/22/21 01/23/21 16:24 09:08 Sodium 140 139 Potassium 3.9 4.0 Chloride 103 104 Carbon Dioxide 26 27 BUN 21 H 13 Creatinine 1.38 0.97 D Glucose 171 H 216 H Calcium 8.9 8.8 Cardiac Enzymes 01/22/21 Range/Units 16:24 Troponin I < 0.015 (0-0.045) ng/ml Liver Function 01/22/21 Range/Units 16:24 Total Bilirubin 0.4 (0.2-1) mg/dl AST 27 (15-37) U/L ALT 50 (12-78) Alkaline Phosphatase 74 (45-117) U/L Albumin 3.1 L (3.4-5.0) gm/dl Urine 01/22/21 Range/Units 22:18 Urine Color Yellow Urine Appearance Clear (Clear) Urine pH 5.0 (4.5-7.5) Ur Specific [place] > 1.045 H (1.000-1.030) Urine Protein 2+ H (Negative) Urine Glucose (UA) 2+ H (Negative)
--- NOTE | 2021-01-23 15:51 | Electrocardiogram Report ---
Test Reason : Blood Pressure : / mmHG Vent. Rate : 094 BPM Atrial Rate : 094 BPM P-R Int : 228 ms QRS Dur : 112 ms QT Int : 372 ms P-R-T Axes : 078 256 040 degrees QTc Int : 465 ms Sinus rhythm with 1st degree A-V block Low voltage QRS Right bundle branch block Abnormal ECG When compared with ECG of 26-JUN-2002 13:08, AR interval has increased Right bundle branch block is now Present Criteria for Inferior infarct are no longer Present Confirmed by Wade Brown ([id number]) on 01/23/2021 3:50:50 PM Referred By: REFERRED SELF Confirmed By:Wade Brown
--- NOTE | 2021-01-23 16:09 | Discharge Summary ---
Date of Service January 23, 2021 Admission HPI Per Admitting Provider History obtained from patient and records. Medical history significant for hypertension, hyperlipidemia, DM2 insulin requiring, ISABEL (CPAP intolerance as per records), past tobacco abuse. Last confinement February 2018 for right foot cellulitis. Prescribed amoxicillin course last month by PCP for otitis media as per records. Symptoms responded to treatment. Patient started feeling unwell this afternoon, achy left-sided headache associated with left ear pain without discharge. Vertigo symptoms as per patient. Patient felt confused. Transient trouble operating the TV remote. Patient denies chest pain, S OB. Usual dry cough symptoms as per patient. No fever, no chills. Patient brought to the ER for evaluation. Initial SBP at the ER 180s. IV Ceftriaxone given at the ER. Patient feels much better. Medical History as above Surgical History : Family History : Personal/Social history : Principal Diagnosis Transient Confusion Hypomagnesemia Discharge Data Allergies Allergy/AdvReac Type Severity Reaction Status Date / Time clavulanic acid Allergy Severe Unknown Verified 01/22/21 16:58 Consultations 01/22/21 19:08 ED Decision to Admit Stat Ordered Studies 01/22/21 16:15 CT head/brain wo con Stat 01/22/21 17:36 CT angio head w con Stat CT angio neck with con Stat 01/23/21 01:01 MR brain wo/w con Urgent Hospital Course (1) Confusion: Transient Confusion Unclear etiology DD: dehydration UA not suggestive of UTI Blood Cx pending --MRI Brain:No acute intracranial findings. No intracranial mass or pathologic enhancement. Small amount of fluid within the left mastoid air cells. --Head and Neck CTA:No occlusion or aneurysm within the [place]. Approximately 75% focal stenosis within the supraclinoid right ICA. Approximately 30% focal stenosis at the takeoff of the left internal carotid artery. The bilateral vertebral arteries are patent. No rhythm issues on monitor No recurrence of confusion Patient's mental status at baseline Carotid artery disease CTA as above H/O statin Intolerance--patient agrees to increase Lipitor to 20 mg daily Discussed with vascular surgery We will switch aspirin to Plavix Will increase Lipitor to 20 mg daily Advised to follow-up as outpatient Hyperlipidemia on statin DM II HbA1C: 7.27 Dec 2020 Continue insulin therapy while hospitalized Monitor BGs Recent Ear Infection Recently completed course of antibiotics Continue eardrops Advised to follow-up with PCP DVT Px: Lovenox SQ Code Status Full code Total Time Total Time Spent Total Time Spent (In Minutes): 38 minutes Discharge Plan Discharge Items Patient Disposition: Home - Self-Care Reason For Visit: DIZZINESS Discharge Diagnosis: Transient Confusion Hypomagnesemia Activity: Per Instructions section Exercise/Sports: Wait until after follow-up appointment Non-emergency contact: Primary Care Provider Call non-emergency contact if: you have any medication questions, your symptoms worsen, your pain is concerning for you and you have a fever Follow-up/Referrals: Fabian Escoto, [Primary Care Provider] - Diet: Carb Consistent or DM2 and Heart Healthy Addtl Attending Provider Instructions: Follow-up with your primary care physician Dr. Fabian Escoto in 1 week Consider following with your neurologist as needed --- Your blood cultures are pending at the time of discharge. Follow-up with your physician for results. Seek immediate medical attention if your symptoms reoccur or worsen Please take all medications as instructed on discharge list below. Please call if you have any questions or problems. You can reach a [facility] hospitalist on duty at [facility] 24 hours a day by calling [phone] Pending Studies at Discharge: Yes Studies:: Blood culture Stand-Alone Forms: [facility], Smoking Cessation Medications and DC Order Prescriptions: New ciprofloxacin-dexamethasone 0.3-0.1 % Drops,Suspension 2 drp otic (ear) QID Qty: 7.5 RF: 0 clopidogrel [Plavix] 75 mg tablet 75 mg PO DAILY Qty: 30 RF: 1 Continued insulin glargine 100 unit/mL solution 30 unit subcut BID RF: 0 glyburide 5 mg Tablet 5 mg PO BID RF: 0 quinapril 40 mg tablet 40 mg PO DAILY RF: 0 metformin 1,000 mg tablet 1,000 mg PO BID RF: 0 hydrochlorothiazide 25 mg tablet 25 mg PO DAILY RF: 0 triamcinolone acetonide 0.1 % Cream 1 applic TOPICAL DAILY PRN (Reason: Skin Irritation) RF: 0 triamcinolone acetonide [Nasacort Allergy] 55 mcg Aerosol,[place] 1 spray INTRANASAL DAILY PRN (Reason: NEEDED) RF: 0 mupirocin 2 % Ointment 1 applic TOPICAL BID PRN (Reason: SORES ON FOOT) RF: 0 fluocinonide 0.05 % Cream 1 applic TOPICAL BID PRN (Reason: ITCHINESS/SKIN IRRITATION) RF: 0 loratadine [Claritin] 10 mg Tablet 10 mg PO DAILY RF: 0 vardenafil 20 mg Tablet 20 mg PO DAILY PRN (Reason: IMPOTENCE OF ORGANIC ORIGIN) RF: 0 Saccharomyces boulardii [Florastor] 250 mg Capsule 250 mg PO BID RF: 0 Trulicity 0.75 mg/0.5 mL Pen Injector 0.75 mg SUBCUT WK RF: 0 Changed atorvastatin 10 mg tablet 20 mg PO PM Qty: 0 RF: 0 Discontinued aspirin 81 mg Tablet,Delayed Release (Dr/Ec) 81 mg PO DAILY RF: 0 Discharge Orders: Discharge Order (Routine); Ordered 01/23/21 Ordered By: Ruben Mcneill Admission Data Admit Date/Time: 01/23/21 10:58 Attending Provider: Ruben Mcneill Admit Provider: Wicho Maria Primary Care Provider: Fabian Escoto Other Providers: Wicho Maria Other Interventions: Discharge Summary Assessment (RN) Last Done: 01/23/21 15:30
[2021-01-24] MEDS ORDERED: INSULIN GLARGINE SOLOSTAR 100 UNITS/ML 3 ML PEN SQ SCH (09:00)
[2021-01-25 07:32] LABS: Babesia microti DNA Not Detected (Not Detected)
== END 2021-01-23 17:03 | disposition home or self-care (01) ==
LOC: ED 16:02 → 2N 16:02 → SUATTDRO 20:57 → 2N 01-23 00:10